=== PATIENT | male | born 1985 | race Caucasian/White ===

== ENCOUNTER 2023-11-30 17:26 | Emergency (ER) | payer MEDICARE, MEDICAID, SELFPAY ==
[2023-11-30 17:33] VITALS: BP 128/102; PULSE 105; TEMP 36.4; O2SAT 100; BMI 16.7
--- NOTE | 2023-11-30 17:59 | XR_ITS ---
The [address] [address] Patient Name: STEFANIE ELLIOTT MRN: [id number] date: 1985 Sex: M Assigned Patient Location: ED.MAIN Current Patient Location: Accession/Order Number: [id number] Exam Date: 11/30/2023 18:25 Report Date: 11/30/2023 20:07 At the request of: SIERRA CAMPBELL Procedure: XR chest 1V CXR HISTORY: Shortness of breath COMPARISON: None. TECHNIQUE: 1 view chest submitted for review. FINDINGS: The lungs are adequately expanded without evidence of acute infiltrate or effusion. The cardiac silhouette measures within normal. Pulmonary vascularity is unremarkable. Osseous structures do not demonstrate any acute abnormality. XR/XR chest 1V IMPRESSION: No plain film evidence for acute cardiopulmonary disease. Electronically authenticated by: LEIF AZUL Date: 11/30/2023 20:07
--- NOTE | 2023-11-30 18:36 | ED_ITS ---
HPI HPI - General Adult General Chief complaint: Nausea/Vomiting/Diarrhea Stated complaint: choking Time Seen by Provider: 11/30/23 17:43 Source: medical record Mode of arrival: ambulance Limitations: language barrier History of Present Illness HPI narrative: 38-year-old male presents emergency room by squad after an acute choking episode. He does live in assisted living facility. He is nonverbal. Patient had Heimlich performed on him prior to arrival. Patient did vomit after Heimlich maneuver. He presented here to the emergency room in no acute distress. He is able to take p.o. fluids. He has not hypoxic or showing signs of distress Related Data Allergies Allergy/AdvReac Type Severity Reaction Status Date / Time cat dander Allergy Severe Rash Verified 11/30/23 17:40 grass pollen Allergy Severe Rash Verified 11/30/23 17:40 horse dander Allergy Severe Rash Verified 11/30/23 17:40 Opioid HPI Opioid Management Most Recent Opioid Data: No Data to Display Review of Systems ROS Narrative All Systems are negative except as noted/marked.All systems reviewed and otherwise negative Exam Narrative Exam Narrative: Nurses note and vital signs reviewed and patient is not hypoxic. General: The patient appears well and in no apparent distress. Patient is resting comfortably on cart. Skin: Warm, dry, no pallor noted. There is no rash noted. Head: Normocephalic, atraumatic Eye: Normal conjunctiva, no drainage, EOMI. PERRL Ears, Nose, Mouth, and Throat: No stridor or respiratory distress , oral mucosa is moist. Nares patent. Mouth without vesicles. Ear canals patent. Tm's without Erythema Cardiovascular: Regular Rate and Rhythm Respiratory: Patient is in no distress, no accessory muscle use, lungs are clear to auscultation, no wheezing, rales or rhonchi Back: non-tender, no CVA tenderness bilaterally to percussion. GI: Normal bowel sounds, no tenderness to palpation, no masses appreciated. No rebound, guarding, or rigidity noted. Musculoskeletal: The patient has no evidence of calf tenderness, no pitting edema, symmetrical pulses noted bilaterally Neurological: Alert appropriate for self he is nonverbal he does sign Psychiatric: Cooperative Constitutional Vital Signs, click to edit/add: Last Vital Signs Temp 97.5 F L 11/30/23 17:33 Pulse 105 H 11/30/23 17:33 Resp 20 11/30/23 17:33 BP 128/102 H 11/30/23 17:33 Pulse Ox 100 11/30/23 17:33 O2 Del Method Room Air 11/30/23 17:33 Course Vital Signs Vital signs: Vital Signs Temperature 97.5 F L 11/30/23 17:33 Pulse Rate 105 H 11/30/23 17:33 Respiratory Rate 20 11/30/23 17:33 Blood Pressure 128/102 H 11/30/23 17:33 Pulse Oximetry 100 11/30/23 17:33 Oxygen Delivery Method Room Air 11/30/23 17:33 Temperature 97.5 F L 11/30/23 17:33 Pulse Rate 105 H 11/30/23 17:33 Respiratory Rate 20 11/30/23 17:33 Blood Pressure 128/102 H 11/30/23 17:33 Pulse Oximetry 100 11/30/23 17:33 Oxygen Delivery Method Room Air 11/30/23 17:33 Medical Decision Making Differential Diagnosis Differential Diagnosis: Foreign body, choking Medical Records Medical records reviewed: Yes I reviewed the patient's medical records Medical records narrative: Observed in the emergency room for over an hour. He is doing well he has tolerated 2 cans of soda here in the emergency room. He has had no vomiting. Mom is at bedside. Patient does live in assisted care but he is going to go home with her this evening. Reasons to return to the emergency room were discussed. Patient's been up and walking around the room without distress. He is not hypoxic and vital signs are stable Imaging Data Chest x-ray: Attestation: I have reviewed the pertinent imaging results. My impression: nad Discharge Plan Discharge Stand Alone Forms: Portal Instructions Chief Complaint: Nausea/Vomiting/Diarrhea Clinical Impression: Choking episode Patient Disposition: Home, Self-Care Time of Disposition Decision: 18:34 Condition: Good Print Language: Luxembourgish Instructions: Esophageal Foreign Body (ED) Referrals: Physician,Non-Staff, MD [Primary Care Provider] - 1 week
[2023-11-30 18:47] VITALS: BP 134/89; PULSE 88; O2SAT 100
--- NOTE | 2023-11-30 20:19 | ED.GENADUL1 ---
HPI HPI - General Adult General Chief complaint: Nausea/Vomiting/Diarrhea Stated complaint: choking Time Seen by Provider: 11/30/23 17:43 Source: medical record Mode of arrival: ambulance Limitations: language barrier History of Present Illness HPI narrative: 38-year-old male presented here to the emergency room by squad after a choking episode. Patient was eating chicken at a assisted living facility. Patient has history of MRDD and is nonverbal. Bystanders there did Heimlich maneuver on the patient. Patient immediately vomited coughed up the chicken. He did want 1 episode of vomiting after as well. Patient was brought here by squad for evaluation. Upon arrival to the emergency room he has had no signs of respiratory distress he is not coughing or vomiting. He was able to keep fluids down in squad. Patient is nonverbal he is home for his demeanor. Related Data Allergies Allergy/AdvReac Type Severity Reaction Status Date / Time cat dander Allergy Severe Rash Verified 11/30/23 17:40 grass pollen Allergy Severe Rash Verified 11/30/23 17:40 horse dander Allergy Severe Rash Verified 11/30/23 17:40 Opioid HPI Opioid Management Most Recent Opioid Data: No Data to Display Review of Systems ROS Narrative All Systems are negative except as noted/marked.All systems reviewed and otherwise negative Exam Narrative Exam Narrative: All Systems are negative except as noted/marked.All systems reviewed and otherwise negative Nurses note and vital signs reviewed and patient is not hypoxic. General: The patient appears well and in no apparent distress. Patient is resting comfortably on cart. Skin: Warm, dry, no pallor noted. There is no rash noted. Head: Normocephalic, atraumatic Eye: Normal conjunctiva, no drainage, EOMI. PERRL Ears, Nose, Mouth, and Throat: oral mucosa is moist. Nares patent. Mouth without vesicles. Ear canals patent. Tm's without Erythema Cardiovascular: Regular Rate and Rhythm Respiratory: Patient is in no distress, no accessory muscle use, lungs are clear to auscultation, no wheezing, rales or rhonchi Back: non-tender, no CVA tenderness bilaterally to percussion. GI: Normal bowel sounds, no tenderness to palpation, no masses appreciated. No rebound, guarding, or rigidity noted. Musculoskeletal: The patient has no evidence of calf tenderness, no pitting edema, symmetrical pulses noted bilaterally Neurological: A&O x4, normal speech Psychiatric: Cooperative Constitutional Vital Signs, click to edit/add: Last Vital Signs Temp 97.5 F L 11/30/23 17:33 Pulse 88 11/30/23 18:47 Resp 14 11/30/23 18:47 BP 134/89 11/30/23 18:47 Pulse Ox 100 11/30/23 18:47 O2 Del Method Room Air 11/30/23 18:47 Course Vital Signs Vital signs: Vital Signs Temperature 97.5 F L 11/30/23 17:33 Pulse Rate 105 H 11/30/23 17:33 Respiratory Rate 20 11/30/23 17:33 Blood Pressure 128/102 H 11/30/23 17:33 Pulse Oximetry 100 11/30/23 17:33 Oxygen Delivery Method Room Air 11/30/23 17:33 Temperature 97.5 F L 11/30/23 17:33 Pulse Rate 88 11/30/23 18:47 Respiratory Rate 14 11/30/23 18:47 Blood Pressure 134/89 11/30/23 18:47 Pulse Oximetry 100 11/30/23 18:47 Oxygen Delivery Method Room Air 11/30/23 18:47 Medical Decision Making MDM Narrative Medical decision making narrative: 38-year-old male presented here to the emergency room by emerson after a choking episode. Patient was eating chicken at a assisted living facility. Patient has history of MRDD and is nonverbal. Bystanders there did Heimlich maneuver on the patient. Patient immediately vomited coughed up the chicken. He did want 1 episode of vomiting after as well. Patient was brought here by emerson for evaluation. Upon arrival to the emergency room he has had no signs of respiratory distress he is not coughing or vomiting. He was able to keep fluids down in squad. Patient is nonverbal he is home for his demeanor. Brought to the emergency room patient was placed in room 4 comfortably. He he showed no signs of choking he is drinking well. He is nonverbal. He does sign. He states he has some tenderness to his throat. Patient was able to drink 2 cans of soda here and did keep them down. Chest x-ray did looked well as well. Mom was here evaluated patient and agrees with plan of care and going to take him home. Patient does live in assisted living but is going home with mom this evening. Patient is calm and cooperative looks well vital signs are stable. Differential Diagnosis Differential Diagnosis: , Aspiration, choking Medical Records Medical records reviewed: Yes I reviewed the patient's medical records Lab Data Lab results reviewed: Yes I reviewed the patient's lab results Imaging Data Chest x-ray: Radiologist's impression: ITS Impressions Chest X-Ray 11/30/23 17:59 IMPRESSION: No plain film evidence for acute cardiopulmonary disease. Electronically authenticated by: LEIF AZUL Date: 11/30/2023 20:07 Discharge Plan Discharge Stand Alone Forms: Portal Instructions Chief Complaint: Nausea/Vomiting/Diarrhea Clinical Impression: Choking episode Patient Disposition: Home, Self-Care Time of Disposition Decision: 18:34 Condition: Good Print Language: Danish Instructions: Esophageal Foreign Body (ED) Referrals: Physician,Non-Staff, MD [Primary Care Provider] - 1 week Discharge Date/Time: 11/30/23 18:50
== END 2023-11-30 18:50 | disposition home or self-care (01) ==
PROVIDERS: Emergency Provider Emergency Medicine
DX: T17.928A Food in respiratory tract, part unspecified causing other injury, initial encounter (principal); W44.F3XA Food entering into or through a natural orifice, initial encounter; F79 Unspecified intellectual disabilities
CPT/HCPCS: 71045; 99283

== ENCOUNTER 2024-02-10 16:16 | Outpatient (OUT) | payer MEDICARE, MEDICAID, SELFPAY ==
--- OUTSIDE RECORDS SUMMARY | 2024-02-10 16:27 | XMS_ITS | CCD ---
Author Organization [facility] VIDEOGRAPHER [facility] Care Team Providers Care Information Systems Security Developer Name Role Phone Unavailable Primary Care Provider Unavailabl e ANDREWS, DR IRASEMA Linder Admitting Unavailable ANDREWS, DR IRASEMA Linder Consulting Unavailable ANDREWS, DR IRASEMA Linder Attending Unavailable ANDREWS, DR IRASEMA Linder Attending Unavailable ANDREWS, DR IRASEMA Linder Admitting Unavailable ANDREWS, DR IRASEMA Linder Consulting Unavailable Unavailable Primary Care Provider Unavailabl e PROVIDER, UNKNOWN Attending Unavailable PROVIDER, UNKNOWN Admitting Unavailable ANDREWSIRASEMA Primary Care Physician [phone] IRASEMA ANDREWS Referring Unavailable ANDREWS, IRASEMA Admitting Unavailable ANDREWSIRASEMA Attending Unavailable ANDREWS, IRASEMA Admitting Unavailable ANDREWSIRASEMA Attending Unavailable ANDREWS, IRASEMA Admitting Unavailable ANDREWSIRASEMA Attending Unavailable Allergies Allergy Classification Reported Allergen(s) Allergy Type Date of Onset Reaction(s) Facility (4 sources) Ketamine; Translations: [KETAMINE] Drug Allergy 1 Rash [facility] Work Phone: (4 sources) [employer]; Translations: [ANIMALS] Propensity to adverse reactions to substance 8 [facility] (4 sources) Pollen; Translations: [POLLEN EXTRACT] Propensity to adverse reactions to drug 8 [facility] (4 sources) redtop grass pollen extract; Translations: [GRAMINEAE POLLENS] Drug Allergy 8 [facility] Medications Current Medications Medication Drug Class(es) Dates Sig (Normalized) Sig (Original) acetaminophen 325 mg oral capsule (3 sources) Start: 07-22-2020 take 2 tablets by mouth every four hours as needed Acetaminophen 325 MG CAPS Take 2 Tablets by mouth every 4 hours as needed. 0 07/22/2020 Active cloNIDine hydrochloride 0.2 mg oral tablet (3 sources) Central alpha-2 Adrenergic Agonist take 1 tablet by mouth three times daily cloNIDine (CATAPRES) 0.2 MG tablet Take 0.2 mg by mouth 3 times daily. 0 Active docosahexaenoic acid 120 mg / eicosapentaenoic acid 180 mg oral capsule (3 sources) Start: 07-22-2020 [place]-3 1000 MG CAPS Take by mouth 2 times daily. 0 07/22/2020 Active docusate sodium 100 mg oral capsule (3 sources) take 1 capsule by mouth twice daily docusate sodium (COLACE) 100 MG capsule Take 100 mg by mouth 2 times daily. 0 Active 12 hr guaiFENesin 600 mg extended release oral tablet (3 sources) Start: 07-22-2020 take 1 tablet by mouth twice daily as needed guaifenesin (Mucinex) 600 MG SR tablet Take 1 Tablet by mouth 2 times daily as needed. 60 Tablet 0 07/22/2020 Active 24 hr guanFACINE 4 mg extended release oral tablet (3 sources) Central alpha-2 Adrenergic Agonist take 1 tablet by mouth once daily in the morning GuanFACINE HCl (TENEX) 4 MG er tablet Take 1 Tablet by mouth every morning. 0 Active loratadine 10 mg oral tablet (3 sources) Start: 07-22-2020 take 1 tablet by mouth once daily as needed loratadine (CLARITIN) 10 MG tablet Take 1 Tablet by mouth daily as needed. 0 07/22/2020 Active metoprolol tartrate 25 mg oral tablet (3 sources) beta-Adrenergic Dang take 1 tablet by mouth three times daily metoprolol (LOPRESSOR) 25 MG tablet Take 1 Tablet by mouth 3 times daily. 0 Active minocycline 100 mg oral capsule (3 sources) Tetracycline-class Drug take 1 capsule by mouth twice daily minocycline (MINOCIN) 100 MG capsule Take 100 mg by mouth 2 times daily. 0 Active Multiple Vitamin (MULTI-VITAMINS) tablet (3 sources) Multiple Vitamin (MULTI-VITAMINS) tablet Take by mouth. 0 Active OLANZapine 10 mg oral tablet (6 sources) Atypical Antipsychotic take 1 tablet by mouth at bedtime OLANZapine (ZyPREXA) 20 MG tablet Take 20 mg by mouth at bedtime. 0 Active take 1 tablet by mouth at bedtim e OLANZapine (ZyPREXA) 10 MG tablet Take 10 mg by mouth at bedtime. 0 Active ondansetron 4 mg oral tablet (3 sources) Serotonin-3 Receptor Antagonist take 1 tablet by mouth every six hours as needed ondansetron (ZOFRAN) 4 MG tablet Take 4 mg by mouth every 6 hours as needed. 0 Active QUEtiapine 200 mg oral tablet (3 sources) Atypical Antipsychotic Start: take 1 tablet by mouth twice daily QUEtiapine (SEROQUEL) 200 MG tablet Take 1 Tablet by mouth 2 times daily. 60 Tablet 0 07/22/2020 Active simvastatin 20 mg oral tablet (3 sources) HMG-CoA Reductase Inhibitor take 1 tablet by mouth once daily in the evening simvastatin (ZOCOR) 20 MG tablet Take 20 mg by mouth every evening. 0 Active tretinoin 1 mg/ml topical cream (3 sources) Retinoid tretinoin (RETIN -A) 0.1 % cream Apply topically at bedtime. Apply daily at bedtime 0 Active 24 hr divalproex sodium 500 mg extended release oral tablet (3 sources) Mood Stabilizer, Anti-epileptic Agent take 1 tablet by mouth three times daily divalproex ER (DEPAKOTE ER) 500 MG ER tablet Take 1 Tablet by mouth 3 times daily. 0 Active witch lyn 200 mg/ml medicated pad (3 sources) Witch Lyn ([facility] [place]) 50 % PADS Apply externally as needed. 0 Active Problems Active Problems Problem Classification Problem Date Documented Da te Episodic/Chronic Anxiety disorders (3 sources) Obsessive-compulsiv e disorder 07-03-2013 Chronic Developmental disorders (6 sources) Intellectual disability; Translations: [Unspecified intellectual disabilities] Onset: 07-07-2020 07-07-2020 Chronic Disorders of lipid metabolism (1 source) Hyperlipidemia, unspecified; Translations: [HYPERLIPIDEMIA UNSPECIFIED] Onset: 07-28-2022 Chronic Disorders usually diagnosed in infancy, childhood, or adolescence (3 sources) Autistic disorder 07-03-2013 Chronic Mood disorders (1 source) Bipolar disorder, unspecified; Translations: [BIPOLAR DISORDER UNSPECIFIED] Onset: 04-07-2022 Chronic Other aftercare (4 sources) Other chcf (current) drug therapy; Translations: [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 PLEASE SEE DEDICATED SPEECH PATHOLOGY REPORT FOR FURTHER DETAILS. REASON FOR EXAM: Dysphagia. Choking episodes. TECHNIQUE: A modified barium swallow study was performed utilizing fluoroscopy in conjunction with speech pathology. Various consistencies of barium were administered. Air kerma mGy: 4.7; fluoroscopy time: 1.9 minutes; dose area product: 107.94 uGym2 All fluoroscopic video series were saved. FINDINGS: Mehul cracker, soft food, pureed food, and thin liquid consistency barium was administered. The patient tolerated all consistencies of barium without abnormality. No laryngeal penetration or tracheal aspiration occurred during this examination. Ordering Provider: IRASEMA ANDREWS FINAL REPORT Dictated: 12/17/2023 3:20 pm Augusto Car DO Signed (Electronic Signature): 12/17/2023 3:20 pm Signed by: Augusto Car DO Transcribed by: FADIA Technologist: AURORA Technical Comments Radiation Dose: Ka,r in mGy = 4.70 DAP = 107.94 Normal [facility] CBC w/Indiceson 07-17-2023 Erythrocyte distribution width (RBC) [Ratio] 13.1 % Normal 10.9-14.2 [facility] Comment on above: Performed By: #### 2 379966, 9480894, 6737228, 15891198, 4741776 #### [facility] [address] [place] [address] Hematocrit (Bld) [Volume fraction] 43.8 % Normal 37.7-49.0 [facility] Comment on above: Performed By: #### 2 727649, 6334522, 5839794, [id number], 9749570 #### [facility] [address] [place] [address] Hemoglobin (Bld) [Mass/Vol] 14.5 g/dL Normal 13.5-17.5 [facility] Comment on above: Performed By: #### 2 937567, 6522708, 7145992, 40704964, 1105338 #### [facility] [address] [place] [address] MCH (RBC) [Entitic mass] 30.5 pg Normal 27.0-34.0 [facility] Comment on above: Performed By: #### 2 913908, 2050464, 8598648, 56230201, 6011517 #### [facility] [address] [place], [place] [address] MCHC (RBC) [Mass/Vol] 33.2 g/dL Normal 31.4-36.0 [facility] Comment on above: Performed By: #### 2 246969, 2804137, 2561177, 43696502, 5746799 #### [facility] [address] [place], [place] [address] MCV (RBC) [Entitic vol] 92.0 fL Normal 80.0-100.0 [facility] Comment on above: Performed By: #### 2 809616, 2764948, 4233813, 13962934, 0721254 #### [facility] [address] [place] [address] Platelet mean volume (Bld) [Entitic vol] 10.6 fL Normal 6.4-10.8 [facility] Comment on above: Performed By: #### 2 489399, 3412827, 0674328, 90715179, 9792421 #### [facility] [address] [place] [address] Platelets (Bld) [#/Vol] 147.0 E9/L Low 150.0-500.0 [facility] Comment on above: Performed By: #### 2 602198, 8163718, 4565832, 34097165, 2094788 #### [facility] [address] [place] [address] RBC (Bld) [#/Vol] 4.8 E12/L Normal 4.3-5.9 [facility] Comment on above: Performed By: #### 2 368408, 8035712, 4439355, 89352946, 3204926 #### [facility] [address] [place] [address] RBC size Nom (Bld) NORMAL Invalid Interpretation Code [facility] Comment on above: Performed By: #### 2 030691, 1627285, 8668432, 17473611, 7966622 #### [facility] [address] [place] [address] WBC corrected for nucl RBC Auto (Bld) [#/Vol] 5.1 E9/L Normal 4.0-11.0 [facility] Comment on above: Performed By: #### 2 886934, 8881719, 0316585, 56466263, 9323112 #### [facility] [address] [place] [address] CHEMISTRYOrdered By: SYSTEM SYSTEM on 07-17-2023 Albumin [Mass/Vol] 4.3 g/dL Normal 3.3 - 5.0 gm/dL [facility] Albumin/Globulin [Mass ratio] 1.9 {ratio} Normal 1.1 - 2.2 [facility] ALP [Catalytic activity/Vol] 44 [iU]/d Normal 21 - 98 Int._Unit/L [facility] ALT No additional P-5'-P [Catalytic activity/Vol] 6 [iU]/d Normal 6 - 46 Int._Unit/L [facility] Anion gap [Moles/Vol] 10 mmol/L Normal 6 - 16 mEq/L R emisol Chem AST [Catalytic activity/Vol] 16 [iU]/d Normal 5 - 43 Int._Unit/L [facility] Bilirubin [Mass/Vol] 0.3 mg/dL Normal 0.0 - 1 .1 mg/dL [facility] Calcium [Mass/Vol] 9.5 mg/dL Normal 8.9 - 11. 1 mg/dL [facility] Chloride [Moles/Vol] 108 mmol/L Normal 101 - 1 11 mmol/L [facility] Cholesterol [Mass/Vol] 137 mg/dL Normal 120 - 200 mg/dL [facility] Cholesterol in HDL [Mass/Vol] 33 mg/dL Invalid Interpretation Code [facility] Comment on above: Result Comment: '>= 60 LOW RISK' '<= 40 HIGH RISK' Cholesterol in LDL [Mass/Vol] 87 mg/dL Normal <=129mg/dL [facility] Cholesterol in VLDL [Mass/Vol] 21 mg/dL Normal 7 - 40 mg/dL [facility] CO2 [Moles/Vol] 28 mmol/L Normal 21 - 31 mmol/L [facility] Creatinine [Mass/Vol] 1.0 mg/dL Normal 0.5 - 1.3 mg/dL [facility] eGFR 100 mL/min/1.73 m2 Normal >=59mL/mi n/1. 73 m2 [facility] Globulin (S) [Mass/Vol] 2.3 g/dL Normal 1.4 - 4.0 gm/dL [facility] Glucose [Mass/Vol] 81 mg/dL Normal 55 - 199 mg/dL [facility] Potassium [Moles/Vol] 4.4 mmol/L Normal 3.5 - 5.3 mmol/L [facility] Protein [Mass/Vol] 6.6 g/dL Normal 6.0 - 7.8 gm/dL [facility] Sodium [Moles/Vol] 142 mmol/L Normal 135 - 145 mmol/L [facility] Triglyceride [Mass/Vol] 106 mg/dL Normal <=149mg/dL [facility] Urea nitrogen [Mass/Vol] 16 mg/dL Normal 5 - 21 mg/dL [facility] Urea nitrogen/Creatinine [Mass ratio] 16 mg/mg Normal 10 - 20 [facility] Valpro Acid Lvl 115 microgram/mL Invalid Interpretation Code 50 - 99 mcg/mL [facility] Comment on above: Result Comment: Crit ical Result S_VPA:[id number] Called to and read back by: SAMIA Fontanez at: 07/17/2023 20:33:29 by:[id number] Critical Result Verified by Repeat Analysis Called Dr. Mitchell office, Samia is giving result to Dr. Corbin Andrews called back and took critical as well. CMPon 07-17-2023 Albumin [Mass/Vol] 4.3 g/dL Normal 3.3-5.0 [facility] Comment on above: Performed By: #### 2 345563, 8211749, 2582945, 75999884, 2229242 #### [facility] [address] [place] [address] Albumin/Globulin (S) [Mass conc ratio] 1.9 Normal 1.1-2.2 [facility] Comment on above: Performed By: #### 2 281542, 8662526, 7682006, 83805325, 4211520 #### [facility] [address] [place] [address] ALP [Catalytic activity/Vol] 44 Int._Unit/L Normal 21-98 [facility] Comment on above: Performed By: #### 2 243419, 9760970, 5841167, 06255367, 0950461 #### [facility] [address] [place] [address] ALT No additional P-5'-P [Catalytic activity/Vol] 6 Int._Unit/L Normal 6-46 [facility] Comment on above: Performed By: #### 2 184597, 9486478, 3506228, 43384456, 7984150 #### [facility] [address] [place] [address] Anion gap [Moles/Vol] 10 mmol/L Normal 6-16 [facility] Comment on above: Performed By: #### 2 978362, 5046642, 5293185, 89512401, 5301604 #### [facility] [address] [place] [address] AST [Catalytic activity/Vol] 16 Int._Unit/L Normal 5-43 [facility] Comment on above: Performed By: #### 2 327280, 4500743, 9741600, 41163837, 7546113 #### [facility] [address] [place] [address] Bilirubin [Mass/Vol] 0.3 mg/dL Normal 0.0-1.1 [facility] Comment on above: Performed By: #### 2 197016, 8881426, 4363792, 93965094, 6328023 #### [facility] [address] [place] [address] Calcium [Mass/Vol] 9.5 mg/dL Normal 8.9-11.1 [facility] Comment on above: Performed By: #### 2 415212, 8583848, 5828995, 20569806, 7848819 #### [facility] [address] [place] [address] Chloride [Moles/Vol] 108 mmol/L Normal 101-111 [facility] Comment on above: Performed By: #### 2 723138, 7405136, 1354399, 12485902, 1491915 #### [facility] [address] [place] [address] CO2 [Moles/Vol] 28 mmol/L Normal 21-31 [facility] Comment on above: Performed By: #### 2 648404, 1880315, 0074249, 76499124, 1244046 #### [facility] [address] [place] [address] Creatinine [Mass/Vol] 1.0 mg/dL Normal 0.5-1.3 [facility] Comment on above: Performed By: #### 2 139624, 3898471, 1383956, 86661776, 4651693 #### [facility] [address] [place] [address] Globulin (S) [Mass/Vol] 2.3 g/dL Normal 1.4-4.0 [facility] Comment on above: Performed By: #### 2 298190, 7474380, 2380605, 76177517, 2308750 #### [facility] [address] [place] [address] Glucose [Mass/Vol] 81 mg/dL Normal 55-199 [facility] Comment on above: Performed By: #### 2 263747, 8397211, 7506184, 00271979, 2802305 #### [facility] [address] [place] [address] Potassium [Moles/Vol] 4.4 mmol/L Normal 3.5-5.3 [facility] Comment on above: Performed By: #### 2 519703, 3341680, 0070562, 74550069, 9149664 #### [facility] [address] [place] [address] Protein [Mass/Vol] 6.6 g/dL Normal 6.0-7.8 [facility] Comment on above: Performed By: #### 2 771048, 0760385, 0943984, 24929155, 3624882 #### [facility] [address] [place] [address] Sodium [Moles/Vol] 142 mmol/L Normal 135-145 [facility] Comment on above: Performed By: #### 2 445159, 1178771, 7296286, 81335070, 7592294 #### [facility] [address] [place] [address] Urea nitrogen [Mass/Vol] 16 mg/dL Normal 5-21 [facility] Comment on above: Performed By: #### 2 679795, 7102355, 2254978, 41026830, 5545199 #### [facility] [address] [place] [address] Urea nitrogen/Creatinine [Mass ratio] 16 No Units Normal 10-20 [facility] Comment on above: Performed By: #### 2 712518, 5833957, 2564806, 67178101, 3854466 #### [facility] [address] [place] [address] HEMATOLOGYOrdered By: SYSTEM SYSTEM on 07-17-2023 Erythrocyte distribution width (RBC) [Ratio] 13.1 % Normal 10.9 - 14.2 % [facility] Hematocrit (Bld) [Volume fraction] 43.8 % Normal 37.7 - 49.0 % [facility] Hemoglobin (Bld) [Mass/Vol] 14.5 g/dL Normal 13.5 - 17.5 gm/dL [facility] MCH (RBC) [Entitic mass] 30.5 pg Normal 27.0 - 34.0 pg [facility] MCHC (RBC) [Mass/Vol] 33.2 g/dL Normal 31.4 - 36.0 gm/dL [facility] MCV (RBC) [Entitic vol] 92.0 fL Normal 80.0 - 100.0 fL [facility] Platelet mean volume (Bld) [Entitic vol] 10.6 fL Normal 6.4 - 10.8 fL [facility] Platelets (Bld) [#/Vol] 147.0 E9/L Low 150.0 - 500.0 E9/L [facility] RBC (Bld) [#/Vol] 4.8 E12/L Normal 4.3 - 5.9 E12/L [facility] RBC size Nom (Bld) NORMAL *NA* (07/17/23 7:35 AM) Invalid Interpretation Code [facility] WBC corrected for nucl RBC Auto (Bld) [#/Vol] 5.1 E9/L Normal 4.0 - 11.0 E9/L [facility] Lipid Panelon 07-17-2023 Cholesterol [Mass/Vol] 137 mg/dL Normal 120-200 [facility] Comment on above: Performed By: #### 2 029275, 6482699, 9634909, 37510748, 1524656 #### [facility] [address] [place] [address] Cholesterol in HDL [Mass/Vol] 33 mg/dL Invalid Interpretation Code [facility] Comment on above: Result Comment: '>= 60 LOW RISK' '<= 40 HIGH RISK' Performed By: #### 2 694910, 3477549, 9514304, 24195242, 9988094 #### [facility] [address] [place] [address] Cholesterol in LDL [Mass/Vol] 87 mg/dL Normal <=129 [facility] Comment on above: Performed By: #### 2 022753, 3353651, 5492409, 10000688, 5845776 #### [facility] [address] [place] [address] Cholesterol in VLDL [Mass/Vol] 21 mg/dL Normal 7-40 [facility] Comment on above: Performed By: #### 2 463476, 1857663, 4105444, 73759472, 5776952 #### [facility] [address] [place] [address] Triglyceride [Mass/Vol] 106 mg/dL Normal <=149 [facility] Comment on above: Performed By: #### 2 489571, 1315089, 8267571, 90729832, 0780055 #### [facility] [address] [place] [address] Physician Orderon 07-17-2023 Physician Order [id number]#1.00TIFF Normal [facility] Valproic Acidon 07-17-2023 Valpro Acid Lvl 115 microgram/mL Abnormal 50-99 [facility] Comment on above: Result Comment: Crit ical Result S_VPA:115 Called to and read back by: SAMIA Fontanez at: 07/17/2023 20:33:29 by:[id number] Critical Result Verified by Repeat Analysis Called Dr. Andrewss office, Samia is giving result to Dr. Corbin Andrews called back and took critical as well. Performed By: #### 2 924260, 0503127, 7674542, 42643588, 1829768 #### [facility] [address] [place] [address] eGFRon 07-17-2023 eGFR 100 mL/min/1.73 m2 Normal >=59 [facility] Comment on above: Order Comment: Order added by Discern Expert. Performed By: #### 2 033215, 3877407, 2615209, 66319915, 0528097 #### [facility] [address] [place] [address] CHEMISTRYOrdered By: SYSTEM SYSTEM on 03-06-2023 Valproate [Moles/Vol] 96 microgram/mL Normal 50 - 99 mcg/mL [facility] Physician Orderon 03-06-2023 Physician Order [id number]#1.00TIFF Normal [facility] Valproic Acidon 03-06-2023 Valproate [Moles/Vol] 96 microgram/mL Normal 50-99 [facility] Comment on above: Performed By: #### 2 895548 #### [facility] [address] [place] [address] Progress Noteson 01-15-2023 Manager Credit Collections Authentication Interface Message Text Normal [employer] [facility] Manager Credit Collections Authentication Interface Message Text ----- Sunday, January 15, 2023 at 2:05:02 PM ----- ----- Provider: [id number] - Ro Chinchilla Hygienist -- Clinic: [place] ----- OR EVALUATION Patient presents for evaluation to determine best course of treatment due to history of No significant medical history. N/C per pt. Patient is accompanied by caregiver for today's appointment. Patient partially cooperated for a partial intraoral exam. 3 BWX Clinical findings: Gingivitis and Periodontitis- stable It is best suited that this patient have full comprehensive examination, radiographs and treatment completed in the OR setting. Explained that the patient will be added to our OR waiting list, and the legal guardian will be contacted once a time slot becomes available. Legal Guardian: [facility] [phone] Nursing Dept [phone] NOTE: Dr. Del Valle did the exam Ro Farnsworth R[facility] Next Visit: OR ----- Signed on Monday, January 16, 2023 at 8:42:19 AM ----- ----- Provider: [id number] Soumya Maher DDS -- Clinic: [place] ----- Normal [employer] [facility] CBC AUTO DIFFon 07-24-2022 BASO # 0.0 103/ul Normal 0.0-0.1 [facility] Comment on above: Performed By: #### C BC #### [facility] [address] [address] [address] Theresa Azevedo Basophils/100 WBC (Bld) 0.7 % Normal 0.2-2.0 [facility] Comment on above: Performed By: #### C BC #### [facility] [id number] Theresa Azevedo EO # 0.2 103/ul Normal 0.0-0.7 [facility] Comment on above: Performed By: #### C BC #### [facility] [address] [address] [address] Theresa Azevedo Eosinophils/100 WBC (Bld) 3.2 % Normal 0.9-7.0 [facility] Comment on above: Performed By: #### C BC #### [facility] [address] [place] [address] Dr. Theresa Azevedo Erythrocyte distribution width (RBC) [Ratio] 12.1 % Normal 11.0-15.0 [facility] Comment on above: Performed By: #### C BC #### [facility] [address] [place] [address] Dr. Theresa Azevedo Hematocrit (Bld) [Volume fraction] 44.9 % Normal 42.0-54.0 [facility] Comment on above: Performed By: #### C BC #### [facility] [address] [place] [address] Dr. Theresa Azevedo Hemoglobin (Bld) [Mass/Vol] 14.8 g/dL Normal 14.0-18.0 [facility] Comment on above: Performed By: #### C BC #### [facility] [address] [place] [address] Dr. Theresa Azevedo IG # 0.06 10e3/ul Critically high 0.00-0.03 [facility] Comment on above: Performed By: #### C BC #### [facility] [address] [place] [address] Dr. Theresa Azevedo IG % 1.1 % Critically high 0.0-0.5 [facility] Comment on above: Performed By: #### C BC #### [facility] [address] [place] [address] Dr. Theresa Azevedo LYMPH # 1.9 103/ul Normal 1.2-3.8 [facility] Comment on above: Performed By: #### C BC #### [facility] [address] [place] [address] Dr. Theresa Azevedo Lymphocytes/100 WBC (Bld) 33.9 % Normal 20.5-60.0 [facility] Comment on above: Performed By: #### C BC #### [facility] [address] [place] [address] Dr. Theresa Azevedo MANUAL DIFF REQ NO Normal [facility] Comment on above: Performed By: #### C BC #### [facility] [address] [place] [address] Dr. Theresa Azevedo MCH (RBC) [Entitic mass] 30.1 pg Normal 25.9-34.0 [facility] Comment on above: Performed By: #### C BC #### [facility] [address] [place] [address] Dr. Theresa Azevedo MCHC (RBC) [Mass/Vol] 33.0 g/dL Normal 29.9-35.2 [facility] Comment on above: Performed By: #### C BC #### [facility] [address] [place] [address] Dr. Theresa Azevedo MCV (RBC) [Entitic vol] 91.3 fL Normal 80.0-94.0 [facility] Comment on above: Performed By: #### C BC #### [facility] [address] [place] [address] Dr. Theresa Azevedo MONO # 0.4 103/ul Normal 0.3-0.8 [facility] Comment on above: Performed By: #### C BC #### [facility] [address] [place] [address] Dr. Theresa Azevedo Monocytes/100 WBC (Bld) 6.9 % Normal 1.7-12.0 [facility] Comment on above: Performed By: #### C BC #### [facility] [address] [place] [address] Dr. Theresa Azevedo NEUT # 3.1 103/ul Normal 1.4-6.5 [facility] Comment on above: Performed By: #### C BC #### [facility] [address] [place] [address] Dr. Theresa Azevedo Neutrophils/100 WBC (Bld) 54.2 % Normal 43.0-75.0 [facility] Comment on above: Performed By: #### C BC #### [facility] [address] [place], [place] [id number] Dr. Theresa Azevedo Platelet mean volume (Bld) [Entitic vol] 10.5 fL Normal 9.5-13.5 [facility] Comment on above: Performed By: #### C BC #### [facility] [address] [place] [address] Dr. Theresa Azevedo PLT 221 103/ul Normal 150-450 [facility] Comment on above: Performed By: #### C BC #### [facility] [address] [place] [address] Dr. Theresa Azevedo RBC 4.92 106/ul Normal 4.70-6.10 [facility] Comment on above: Performed By: #### C BC #### [facility] [address] [place] [address] Dr. Theresa Azevedo WBC 5.7 103/ul Normal 4.0-11.0 [facility] Comment on above: Performed By: #### C BC #### [facility] [address] [place] [address] Dr. Theresa Azevedo LIPID PROFILEon 07-24-2022 CHOL-HDL RATIO NORM SEE BELOW Normal [facility] Comment on above: Result Comment: 3.3 - 4.4 LOW RISK 4.4 - 7.1 AVERAGE RISK 7.1 - 11.0 MODERATE RISK >11.0 HIGH RISK Performed By: #### L IPID, CMP #### [facility] [address] [place] [address] Dr. Theresa Azevedo Cholesterol [Mass/Vol] 169 mg/dL Normal <=200 [facility] Comment on above: Performed By: #### L IPID, CMP #### [facility] [address] [place] [address] Dr. Theresa Azevedo Cholesterol in HDL [Mass/Vol] 28 mg/dL Critically low 40-60 [facility] Comment on above: Performed By: #### L IPID, CMP #### [facility] [address] [place] [address] Dr. Theresa Azevedo Cholesterol in LDL [Mass/Vol] 118.8 mg/dL Normal [facility] Comment on above: Performed By: #### L IPID, CMP #### [facility] [address] [address] [address] Theresa Azevedo Cholesterol.total/Cho lesterol in HDL [Mass ratio] 6.0 {ratio} Normal [facility] Comment on above: Performed By: #### L IPID, CMP #### [facility] [address] [address] [address] Theresa Azevedo HDL NORMAL > or = 60 mg/dl - LOW CARDIOVASCULAR RISK <40 mg/dl - HIGH CARDIOVASCULAR RISK Normal [facility] Comment on above: Performed By: #### L IPID, CMP #### [facility] [address] [address] [address] Theresa Azevedo LDL CALC NORMAL SEE BELOW Normal [facility] Comment on above: Result Comment: <100 mg/dl OPTIMAL 100 - 129 mg/dl NEAR OR ABOVE OPTIMAL 130 - 159 mg/dl BORDERLINE HIGH 160 - 189 mg/dl HIGH >190 mg/dl VERY HIGH Performed By: #### L IPID, CMP #### [facility] [address] [place] [address] Dr. Theresa Azevedo Triglyceride [Mass/Vol] 111 mg/dL Normal <=150 [facility] Comment on above: Performed By: #### L IPID, CMP #### [facility] [address] [place] [address] Dr. Theresa Azevedo VLDL CALC 22.2 mg/dL Normal [facility] Comment on above: Performed By: #### L IPID, CMP #### [facility] [address] [address] [address] Theresa Azevedo PROF 14(COMP METB)on 023 Albumin [Mass/Vol] 3.5 g/dL Normal 3.4-5.0 [facility] Comment on above: Performed By: #### L IPID, CMP #### [facility] [address] [place] [address] Dr. Theresa Azevedo Albumin/Globulin [Mass ratio] 0.9 {ratio} Normal [facility] Comment on above: Performed By: #### L IPID, CMP #### [facility] [address] [address] [address] Theresa Azevedo ALP [Catalytic activity/Vol] 55 U/L Normal 46-116 [facility] Comment on above: Performed By: #### L IPID, CMP #### [facility] [address] [address] [address] Theresa Azevedo ALT [Catalytic activity/Vol] 16 U/L Normal 16-63 [facility] Comment on above: Performed By: #### L IPID, CMP #### [facility] [address] [address] [address] Theresa Azevedo Anion gap [Moles/Vol] 10.9 mmol/L Normal [facility] Comment on above: Performed By: #### L IPID, CMP #### [facility] [address] [place] [address] Dr. Theresa Azevedo AST [Catalytic activity/Vol] 12 U/L Critically low 15-37 [facility] Comment on above: Performed By: #### L IPID, CMP #### [facility] [address] [place] [address] Dr. Theresa Azevedo Bilirubin [Mass/Vol] 0.4 mg/dL Normal 0.2-1.0 [facility] Comment on above: Performed By: #### L IPID, CMP #### [facility] [address] [place] [address] Dr. Theresa Azevedo Calcium [Mass/Vol] 9.5 mg/dL Normal 8.5-10.1 [facility] Comment on above: Performed By: #### L IPID, CMP #### [facility] [address] [place] [address] Dr. Theresa Azevedo Chloride [Moles/Vol] 106 mmol/L Normal 98-107 [facility] Comment on above: Performed By: #### L IPID, CMP #### [facility] [address] [place] [address] Dr. Theresa Azevedo CO2 [Moles/Vol] 31.1 mmol/L Normal 21.0-32.0 [facility] Comment on above: Performed By: #### L IPID, CMP #### [facility] [address] [address] [address] Theresa Azevedo Creatinine [Mass/Vol] 0.79 mg/dL Normal 0.70-1.30 [facility] Comment on above: Performed By: #### L IPID, CMP #### [facility] [address] [address] [address] Theresa Azevedo EGFR-AF PARAGUAYAN >60 Normal >=60 [facility] Comment on above: Performed By: #### L IPID, CMP #### [facility] [address] [address] [address] Theresa Azevedo EGFR-NON AF PARAGUAYAN >60 Normal >=60 [facility] Comment on above: Performed By: #### L IPID, CMP #### [facility] [address] [address] [address] Theresa Azevedo Globulin (S) [Mass/Vol] 4.1 g/dL Normal [facility] Comment on above: Performed By: #### L IPID, CMP #### [facility] [address] [address] [address] Theresa Azevedo Glucose [Mass/Vol] 90 mg/dL Normal 74-106 [facility] Comment on above: Performed By: #### L IPID, CMP #### [facility] [address] [address] [address] Theresa Azevedo Potassium [Moles/Vol] 4.0 mmol/L Normal 3.5-5.1 [facility] Comment on above: Performed By: #### L IPID, CMP #### [facility] [address] [address] [address] Theresa Azevedo Protein [Mass/Vol] 7.6 g/dL Normal 6.4-8.2 [facility] Comment on above: Performed By: #### L IPID, CMP #### [facility] [address] [address] [address] Theresa Azevedo Sodium [Moles/Vol] 144 mmol/L Normal 136-145 [facility] Comment on above: Performed By: #### L IPID, CMP #### [facility] [address] [address] [address] Theresa Azevedo Urea nitrogen [Mass/Vol] 13.0 mg/dL Normal 7.0-18.0 [facility] Comment on above: Performed By: #### L IPID, CMP #### [facility] [address] [address] [address] Theresa Azevedo Urea nitrogen/Creatinine [Mass ratio] 16.5 mg/mg Normal [facility] Comment on above: Performed By: #### L IPID, CMP #### [facility] [address] [address] [address] Theresa Azevedo DEPAKENE/ VALPROIC ACIDon DEPAKENE 97.6 ug/ml Normal 50.0-100.0 [facility] Comment on above: Performed By: #### V ALP #### [facility] [address] [address] [address] Theresa Azevedo Encounters Encounter Date Encounter Type Care Provider Facility Start: 12-17-2023 End: 12-17-2023 ambulatory IRASEMA ANDREWS [place] [place]: 12-17-2023 End: 12-17-2023 Patient encounter procedure IRASEMA ANDREWS [facility] Start: 07-17-2023 End: 07-17-2023 Lab Drop off IRASEMA ANDREWS [facility] Start: 07-17-2023 End: 07-17-2023 ambulatory IRASEMA ANDREWS [place] [place]: 03-06-2023 End: 03-06-2023 ambulatory IRASEMA ANDREWS [place] [place]: 03-06-2023 End: 03-06-2023 Lab Drop off IRASEMA ANDREWS [facility] Start: 01-15-2023 End: 01-17-2023 ambulatory UNKNOWN PROVIDER Facility:[facility] Start: 01-15-2023 End: 01-17-2023 Patient encounter procedure Ro Chinchilla [facility] Work Phone: [facility] Start: 07-24-2022 End: 07-25-[address] IRASEMA ANDREWS Facility:[facility] Start: 04-29-2022 Letter encounter [facility] Start: 04-03-2022 End: 04-04-[address] IRASEMA ANDREWS Facility:[facility] Start: 08-29-2021 End: 08-30-2021 Patient encounter procedure Lima Bazan [facility] Work Phone: [facility] Plan of Treatment Date Care Activity Detail Author Start: 10-15-2037 Shingles (RZV) Vacci ne (1 of 2) Shingles (RZV) Vaccine (1 of 2) [facility] Start: 09-22-[address] [facility] Start: 12-21-2022 Influenza vaccination Influenza Vacc ine (#1) [facility] Start: 10-15-2022 Lipid panel Cholesterol [facility] Start: 01-20-2022 Influenza vaccination Influenza Vacc ine (#1) [facility] Start: 10-15-2014 HPV Vaccine (optiona l start 27-45 years) HPV Vaccine (optional start -45 years) [facility] Start: 09-20-2008 Annual wellness visit Annual [facility] Visit (G0438) [facility] Start: 10-15-2005 Hepatitis C screening Hepatitis C An tibody [facility] Start: 10-15-2002 HIV screening HIV Test [facility] Start: 1987 COVID-19 Vaccine ( formulation) COVID-19 Vaccine ( formulation) [facility] Immunizations Immunization Date Immunization Notes Care Provider Fa cili 02-15-2021 influenza, injectabl e, quadrivalent, preservative free Lima Bazan [facility] Work Phone: [facility] 02-15-2021 influenza virus vacc ine, unspecified formulation [facility] 01-27-2020 influenza, injectabl e, quadrivalent, preservative free Lima Bazan [facility] Work Phone: [facility] 09-23-2019 tetanus toxoid, redu regina diphtheria toxoid, and acellular pertussis vaccine, adsorbed Lima Bazan [facility] Work Phone: [facility] 01-29-2018 influenza, injectabl e, quadrivalent, preservative free Lima Bazan [facility] Work Phone: [facility] 02-13-2017 influenza, injectabl e, quadrivalent, contains preservative Lima Bazan [facility] Work Phone: [facility] 02-10-2015 influenza, injectabl e, quadrivalent, preservative free Lima Bazan [facility] Work Phone: [facility] 03-09-2009 novel influenza-H1N1 -09, preservative-free, injectable Lima Bazan [facility] Work Phone: [facility] 02-12-2008 influenza virus vacc ine, whole virus Lima Beni [facility] Work Phone: [facility] 02-19-2006 influenza, seasonal, injectable Lima Bazan [facility] Work Phone: [facility] 10-30-2001 measles, mumps and r ubella virus vaccine Limaelza Bazan [facility] Work Phone: [facility] 05-31-1999 diphtheria, tetanus toxoids and acellular pertussis vaccine, unspecified formulation Lima Bazan [facility] Work Phone: [facility] Payers Date Payer Category Payer Medicaid [id number] 2007 Medicare MEDICARE MEDICAR E PART A & B [id number] 2007-Present [address] [place] [address] Medicare [id number] 1987 Unknown [id number] 1987 Unknown [id number] 1987 Unknown [id number] 1987 Unknown [id number] 1987 Unknown [id number] 1957 Medicaid [id number] 1957 Medicare [id number] Unknown [id number] Social History Date Type Detail Facility Start: 07-22-2020 Tobacco smoking status WAIS Never smoked tobacco [facility] Work Phone: Start: 07-22-2020 Tobacco use and exposure Smokeless tobacco non-user [facility] Start: 1985 Sex Assigned At Not on file [facility] Gender identity Not on file [facility] Tobacco smoking status No Smoking Status Entered [facility] History of Present illness Narrative 01-15-2023 Ro Chinchilla [facility] - 01/15/2023 1:12 PM EDTRaRo armando [facility] - 01/15/2023 12:00 AM EDT Note Date & Type Note Facility 01-15-2023 History of Presen t illness Narrative ----- Sunday, January 15, 2023 at 2:05:02 PM ----- ----- Provider: [id number] - Pastor Gonzalezeni -- Clinic: [place] ----- OR EVALUATION Patient presents for evaluation to determine best course of treatment due to history of No significant medical history. N/C per pt. Patient is accompanied by caregiver for today's appointment. Patient partially cooperated for a partial intraoral exam. 3 BWX Clinical findings: Gingivitis and Periodontitis- stable It is best suited that this patient have full comprehensive examination, radiographs and treatment completed in the OR setting. Explained that the patient will be added to our OR waiting list, and the legal guardian will be contacted once a time slot becomes available. Legal Guardian: [facility] [phone] Nursing Dept [phone] NOTE: Dr. Del Valle did the exam Ro Farnsworth [facility] Next Visit: OR ----- Signed on Monday, January 16, 2023 at 8:42:19 AM ----- ----- Provider: [id number] Soumya Maher DDS -- Clinic: [place] ----- documented in this encounter [facility] History of Present illness Narrative 08-29-2021 Lima Bazan [facility] - 08/29/2021 11:22 AM EDT Note Date & Type Note Facility 08-29-2021 History of Presen t illness Narrative ----- Sunday, August 29, 2021 at 3:36:11 PM ----- ----- Provider: [id number] Soumya Bazan Hygieni -- Clinic: [place] ----- FOR[facility]LY [facility], [facility], Pt is ready for tx Pt presented for Periodic Examination, Pain Scale: 0. Pt chief complaint: FOLLOW UP Radiographs taken today were: none due to pt cooperation Examination reveals: Periodontal disease, Soft tissue is within normal limits, TMJ is within normal limits, Verified charting, Updates made. Went over current needs and past needs that have not been fulfilled. Oral hygiene instructions given to the patient Pt is scheduled for Prophylaxis, Examination of dentition and gingiva was done, and revealed that the pt has: Plaque _mod__ Calculus _mod ([place] ant)__ Staining _mod (intrinsic)__ *Hand scaling was done using curettes. Teeth were polished with pumice. Pt has signs of gum disease will need assessment of probing depths for S&RP. Pt tolerated procedure well. OHI and education were discussed with the pt. Place pt on 6 month recall. Examination completed by Dr. Young. Note: Pt was seen in the OR July 2020. Tried to scale with instruments and pt kept pulling away and was unable to scale. Only removed some from 24-M. pt allowed toothbrush prophy, floss and to be wiped with a gauze. Allowed for clinical exam and there is no evidence of decay. Advised to follow-up in 1 year. Lima [facility] [place]: RECALL/ 1 year. ----- Signed on Sunday, August 29, 2021 at 3:45:45 PM ----- ----- Provider: Emre Maher DDS -- Clinic: [place] ----- documented in this encounter [facility] Evaluation + Plan note Note Date & Type Note Facility Evaluation + Plan note No data available for this section [facility] Hospital Discharge instructions Note Date & Type Note Facility Hospital Discharge instructions No data available for this section [facility] Progress note Note Date & Type Note Facility Progress note No data available for this section [facility] Summary Purpose Family History No Family History Records FoundNo Family History Records Found No data available for this section No data available for this section No data available for this section No Family History Records Found Advance Directives No Advanced Directives Records FoundNo Advanced Directives Records FoundNo Advanced Directives Records Found Additional Source Comments (unrecognized sect ion and content) No Status Records FoundNo Status Records FoundNo Status Records Found INFORMATION SOURCE (unrecogn ized section and content) DATE CREATED AUTHOR 07/29/2022 [facility] DATE CREATED AUTHOR AUTHOR'S ORGANIZ ATION [facility]2023 [facility] DATE CREATED AUTHOR AUTHOR'S ORGANIZ ATION 12/25/2023 [facility] Patient Care team informatio n (unrecognized section and content) Personnel Name: IRASEMA ANDREWS DO Address: Address: [address] [place] [address] Personnel Name: IRASEMA ANDREWS DO Address: Address: [address] [place] [address] Personnel Name: IRASEMA ANDREWS DO Address: Address: [address] [place] [address] FOR RECORDS PERTAINING TO PATIENTS WHO ARE OR HAVE BEEN ENROLLED IN A CHEMICAL DEPENDENCY/SUBSTANCEABUSE PROGRAM, SOME INFORMATION MAY BE OMITTED. This clinical summary was aggregated from multiple sources. Caution should be exercised in using it in the provision of clinical care. This summary normalizes information from multiple sources, and as a consequence, information in this document may materially change the coding, format and clinical context of patient data. In addition, data may be omitted in some cases. CLINICAL DECISIONS SHOULD BE BASED ON THE PRIMARY CLINICAL RECORDS. [facility] [employer] [facility]. provides no warranty or guarantee of the accuracy or completeness of information in this document.
[2024-02-10 16:53] LABS: Valproic Acid 49.6 ug/mL (50.0-100.0)
== END 2024-02-10 16:17 | disposition home or self-care (01) ==
PROVIDERS: Visit Provider Family Medicine
DX: Z79.899 Other long term (current) drug therapy (principal)
CPT/HCPCS: 36415; 80164

== ENCOUNTER 2024-06-30 06:54 | Outpatient (OUT) | payer MEDICARE, MEDICAID, SELFPAY ==
--- OUTSIDE RECORDS SUMMARY | 2024-06-30 06:58 | XMS_ITS | CCD ---
Author Organization [facility] Care Team Providers Care American History Teacher Name Role Phone Unavailable Primary Care Provider Unavailabl e ANDREWS, DR IRASEMA Linder Admitting Unavailable ANDREWS, DR IRASEMA Linder Consulting Unavailable ANDREWS, DR IRASEMA Linder Attending Unavailable ANDREWS, DR IRASEMA Linder Attending Unavailable ANDREWS, DR IRASEMA Linder Admitting Unavailable ANDREWS, DR IRASEMA Linder Consulting Unavailable Unavailable Primary Care Provider Unavailabl e PROVIDER, UNKNOWN Attending Unavailable PROVIDER, UNKNOWN Admitting Unavailable ANDREWSIRASEMA Primary Care Physician [phone] IRASEMA ANDREWS Referring Unavailable ANDREWS, IRASEMA Admitting Unavailable ANDREWS, IRASEMA Attending Unavailable ANDREWS, IRASEMA Admitting Unavailable ANDREWS, IRASEMA Attending Unavailable ANDREWS, IRASEMA Admitting Unavailable ANDREWS, IRASEMA Attending Unavailable Allergies Allergy Classification Reported Allergen(s) Allergy Type Date of Onset Reaction(s) Facility (5 sources) Ketamine; Translations: [KETAMINE] Drug Allergy 1 Rash [facility] Work Phone: (5 sources) [employer]; Translations: [ANIMALS] Propensity to adverse reactions to substance 8 [facility] (5 sources) Pollen; Translations: [POLLEN EXTRACT] Propensity to adverse reactions to drug 8 [facility] (5 sources) redtop grass pollen extract; Translations: [GRAMINEAE POLLENS] Drug Allergy 8 [facility] Medications Current Medications Medication Drug Class(es) Dates Sig (Normalized) Sig (Original) acetaminophen 325 mg oral capsule (4 sources) Start: 07-22-2020 take 2 tablets by mouth every four hours as needed Acetaminophen 325 MG CAPS Take 2 Tablets by mouth every 4 hours as needed. 07/22/2020 Active cloNIDine hydrochloride 0.2 mg oral tablet (4 sources) Central alpha-2 Adrenergic Agonist take 1 tablet by mouth three times daily cloNIDine (CATAPRES) 0.2 MG tablet Take 0.2 mg by mouth 3 times daily. Active docosahexaenoic acid 120 mg / eicosapentaenoic acid 180 mg oral capsule (4 sources) Start: 07-22-2020 Reynolds-3 1000 MG CAPS Take by mouth 2 times daily. 07/22/2020 Active docusate sodium 100 mg oral capsule (4 sources) take 1 capsule by mouth twice daily docusate sodium (COLACE) 100 MG capsule Take 100 mg by mouth 2 times daily. Active 12 hr guaiFENesin 600 mg extended release oral tablet (4 sources) Start: 07-22-2020 take 1 tablet by mouth twice daily as needed guaifenesin (Mucinex) 600 MG SR tablet Take 1 Tablet by mouth 2 times daily as needed. 60 Tablet 07/22/2020 Active 24 hr guanFACINE 4 mg extended release oral tablet (4 sources) Central alpha-2 Adrenergic Agonist take 1 tablet by mouth once daily in the morning GuanFACINE HCl (TENEX) 4 MG er tablet Take 1 Tablet by mouth every morning. Active loratadine 10 mg oral tablet (4 sources) Start: 07-22-2020 take 1 tablet by mouth once daily as needed loratadine (CLARITIN) 10 MG tablet Take 1 Tablet by mouth daily as needed. 07/22/2020 Active metoprolol tartrate 25 mg oral tablet (4 sources) beta-Adrenergic Dang take 1 tablet by mouth three times daily metoprolol (LOPRESSOR) 25 MG tablet Take 1 Tablet by mouth 3 times daily. Active minocycline 100 mg oral capsule (4 sources) Tetracycline-cla ss Drug take 1 capsule by mouth twice daily minocycline (MINOCIN) 100 MG capsule Take 100 mg by mouth 2 times daily. Active Multiple Vitamin (MULTI-VITAMINS) tablet (4 sources) Multiple Vitamin (MULTI-VITAMINS) tablet Take by mouth. Active Multiple Vitamin (MULTI-VITAMINS) tablet Take by mouth. 0 Active OLANZapine 10 mg oral tablet (8 sources) Atypical Antipsychotic take 1 tablet by mouth at bedtime OLANZapine (ZyPREXA) 20 MG tablet Take 20 mg by mouth at bedtime. Active take 1 tablet by mouth at bedtim e OLANZapine (ZyPREXA) 10 MG tablet Take 10 mg by mouth at bedtime. Active ondansetron 4 mg oral tablet (4 sources) Serotonin-3 Receptor Antagonist take 1 tablet by mouth every six hours as needed ondansetron (ZOFRAN) 4 MG tablet Take 4 mg by mouth every 6 hours as needed. Active QUEtiapine 200 mg oral tablet (4 sources) Atypical Antipsychotic Start: 1 take 1 tablet by mouth twice daily QUEtiapine (SEROQUEL) 200 MG tablet Take 1 Tablet by mouth 2 times daily. 60 Tablet 07/22/2020 Active simvastatin 20 mg oral tablet (4 sources) HMG-CoA Reductase Inhibitor take 1 tablet by mouth once daily in the evening simvastatin (ZOCOR) 20 MG tablet Take 20 mg by mouth every evening. Active tretinoin 1 mg/ml topical cream (4 sources) Retinoid tretinoin (RETIN -A) 0.1 % cream Apply topically at bedtime. Apply daily at bedtime Active 24 hr divalproex sodium 500 mg extended release oral tablet (4 sources) Mood Stabilizer, Anti-epileptic Agent take 1 tablet by mouth three times daily divalproex ER (DEPAKOTE ER) 500 MG ER tablet Take 1 Tablet by mouth 3 times daily. Active witch lyn 200 mg/ml medicated pad (4 sources) Witch Lyn ([facility] [place]) 50 % PADS Apply externally as needed. Active Problems Active Problems Problem Classification Problem Date Documented Da te Episodic/Chronic Anxiety disorders (3 sources) Obsessive-compulsiv e disorder 07-03-2013 Chronic Developmental disorders (7 sources) Intellectual disability; Translations: [Unspecified intellectual disabilities] Onset: 07-07-2020 07-07-2020 Chronic Disorders of lipid metabolism (1 source) Hyperlipidemia, unspecified; Translations: [HYPERLIPIDEMIA UNSPECIFIED] Onset: 07-28-2022 Chronic Disorders usually diagnosed in infancy, childhood, or adolescence (3 sources) Autistic disorder 07-03-2013 Chronic Mood disorders (1 source) Bipolar disorder, unspecified; Translations: [BIPOLAR DISORDER UNSPECIFIED] Onset: 04-07-2022 Chronic Other aftercare (4 sources) Other residential (current) drug therapy; Translations: [OTH 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 CURRENT DRUG THERAPY] Onset: 07-24-2022 Episodic Past or Other Problems Problem Classification Problem Date Documented Da te Episodic/Chronic Disorders of teeth and jaw (4 sources) Dental caries; Translations: [Dental caries, unspecified] [...] mGy = 4.70 DAP = 107.94 Normal [facility] CBC w/Indiceson 07-17-2023 Erythrocyte distribution width (RBC) [Ratio] 13.1 % Normal 10.9-14.2 [facility] Comment on above: Performed By: #### 2 278534, 6109651, 2733395, [id number], 9596605 #### [facility] [address] [place] [address] Hematocrit (Bld) [Volume fraction] 43.8 % Normal 37.7-49.0 [facility] Comment on above: Performed By: #### 2 616128, 5137784, 1271453, 46117911, 4692660 #### [facility] [address] [place] [address] Hemoglobin (Bld) [Mass/Vol] 14.5 g/dL Normal 13.5-17.5 [facility] Comment on above: Performed By: #### 2 863408, 9778089, 4775121, 46021017, 2171716 #### [facility] [address] [place] [address] MCH (RBC) [Entitic mass] 30.5 pg Normal 27.0-34.0 [facility] Comment on above: Performed By: #### 2 099795, 0621885, 3627945, 19400791, 1039993 #### [facility] [address] [place] [address] MCHC (RBC) [Mass/Vol] 33.2 g/dL Normal 31.4-36.0 [facility] Comment on above: Performed By: #### 2 776636, 5603953, 4871015, 85567503, 0486606 #### [facility] [address] [place] [address] MCV (RBC) [Entitic vol] 92.0 fL Normal 80.0-100.0 [facility] Comment on above: Performed By: #### 2 364883, 9814961, 4455553, 49593527, 0631456 #### [facility] [address] [place], [place] [id number] Platelet mean volume (Bld) [Entitic vol] 10.6 fL Normal 6.4-10.8 [facility] Comment on above: Performed By: #### 2 100559, 3081550, 5604734, 30921588, 3031868 #### [facility] [address] [place], [place] [id number] Platelets (Bld) [#/Vol] 147.0 E9/L Low 150.0-500.0 [facility] Comment on above: Performed By: #### 2 189127, 1983513, 8157867, 17890499, 9811308 #### [facility] [address] [place] [address] RBC (Bld) [#/Vol] 4.8 E12/L Normal 4.3-5.9 [facility] Comment on above: Performed By: #### 2 299474, 7715458, 2361837, 48642509, 0381773 #### [facility] [address] [place] [address] RBC size Nom (Bld) NORMAL Invalid Interpretation Code [facility] Comment on above: Performed By: #### 2 189584, 1527594, 5754479, 43354904, 0940445 #### [facility] [address] [place] [address] WBC corrected for nucl RBC Auto (Bld) [#/Vol] 5.1 E9/L Normal 4.0-11.0 [facility] Comment on above: Performed By: #### 2 850097, 7917878, 9157637, 60430397, 3173742 #### [facility] [address] [place] [address] CHEMISTRYOrdered By: SYSTEM SYSTEM on 07-17-2023 Albumin [...] back by: SAMIA Fontanez at: 07/17/2023 20:33:29 by:[email or web address] Critical Result Verified by Repeat Analysis Called Dr. Mitchell office, Samia is giving result to Dr. Corbin Andrews called back and took critical as well. CMPon 07-17-2023 Albumin [Mass/Vol] 4.3 g/dL Normal 3.3-5.0 [facility] Comment on above: Performed By: #### 2 302658, 3645377, 7837998, 71241191, 3277024 #### [facility] [address] [place] [address] Albumin/Globulin (S) [Mass conc ratio] 1.9 Normal 1.1-2.2 [facility] Comment on above: Performed By: #### 2 401012, 8091379, 4168012, 95201698, 6166109 #### [facility] [address] [place] [address] ALP [Catalytic activity/Vol] 44 Int._Unit/L Normal 21-98 [facility] Comment on above: Performed By: #### 2 113633, 1713063, 0944244, 60321244, 2200361 #### [facility] [address] [place] [address] ALT No additional P-5'-P [Catalytic activity/Vol] 6 Int._Unit/L Normal 6-46 [facility] Comment on above: Performed By: #### 2 194399, 3572038, 9468957, 95144713, 1586778 #### [facility] [address] [place] [address] Anion gap [Moles/Vol] 10 mmol/L Normal 6-16 [facility] Comment on above: Performed By: #### 2 661435, 6776329, 2926785, 66613185, 3914641 #### [facility] [address] [place] [address] AST [Catalytic activity/Vol] 16 Int._Unit/L Normal 5-43 [facility] Comment on above: Performed By: #### 2 375938, 1594745, 4501610, 38592006, 7347049 #### [facility] [address] [place] [address] Bilirubin [Mass/Vol] 0.3 mg/dL Normal 0.0-1.1 [facility] Comment on above: Performed By: #### 2 580718, 5065276, 6892225, 58763557, 1527523 #### [facility] [address] [place] [address] Calcium [Mass/Vol] 9.5 mg/dL Normal 8.9-11.1 [facility] Comment on above: Performed By: #### 2 408653, 3409086, 8270861, 00776762, 0276441 #### [facility] [address] [place] [address] Chloride [Moles/Vol] 108 mmol/L Normal 101-111 [facility] Comment on above: Performed By: #### 2 187379, 8259514, 2298112, 29930703, 0394300 #### [facility] [address] [place] [address] CO2 [Moles/Vol] 28 mmol/L Normal 21-31 [facility] Comment on above: Performed By: #### 2 680093, 1109437, 8541897, 50741336, 1245899 #### [facility] [address] [place] [address] Creatinine [Mass/Vol] 1.0 mg/dL Normal 0.5-1.3 [facility] Comment on above: Performed By: #### 2 255304, 4032990, 3960425, 08773136, 1614860 #### [facility] [address] [place] [address] Globulin (S) [Mass/Vol] 2.3 g/dL Normal 1.4-4.0 [facility] Comment on above: Performed By: #### 2 125040, 5754264, 5037216, 77249681, 3438685 #### [facility] [address] [place] [address] Glucose [Mass/Vol] 81 mg/dL Normal 55-199 [facility] Comment on above: Performed By: #### 2 035054, 4560031, 5859742, 10452012, 7658315 #### [facility] [address] [place] [address] Potassium [Moles/Vol] 4.4 mmol/L Normal 3.5-5.3 [facility] Comment on above: Performed By: #### 2 462684, 2785793, 4741405, 98506526, 7556241 #### [facility] [address] [place] [address] Protein [Mass/Vol] 6.6 g/dL Normal 6.0-7.8 [facility] Comment on above: Performed By: #### 2 968807, 7432300, 6776769, 13452472, 8911577 #### [facility] [address] [place] [address] Sodium [Moles/Vol] 142 mmol/L Normal 135-145 [facility] Comment on above: Performed By: #### 2 698903, 4189008, 1917235, 82455850, 8133472 #### [facility] [address] [place] [address] Urea nitrogen [Mass/Vol] 16 mg/dL Normal 5-21 [facility] Comment on above: Performed By: #### 2 558780, 7589292, 8116865, 10308588, 0605037 #### [facility] [address] [place] [address] Urea nitrogen/Creatinine [Mass ratio] 16 No Units Normal 10-20 [facility] Comment on above: Performed By: #### 2 809658, 1826128, 3486603, 05030013, 2057257 #### [facility] [address] [place] [address] HEMATOLOGYOrdered By: SYSTEM SYSTEM on 07-17-2023 Erythrocyte [...] 07-17-2023 Cholesterol [Mass/Vol] 137 mg/dL Normal 120-200 [facility] Comment on above: Performed By: #### 2 628016, 1959434, 5268273, 59958192, 4331431 #### [facility] [address] [place] [address] Cholesterol in HDL [Mass/Vol] 33 mg/dL Invalid Interpretation Code [facility] Comment on above: Result Comment: '>= 60 LOW RISK' '<= 40 HIGH RISK' Performed By: #### 2 240838, 9529681, 0665342, 11760428, 0237061 #### [facility] [address] [place] [address] Cholesterol in LDL [Mass/Vol] 87 mg/dL Normal <=129 [facility] Comment on above: Performed By: #### 2 896249, 7571285, 9055345, 22777898, 2812071 #### [facility] [address] [place] [address] Cholesterol in VLDL [Mass/Vol] 21 mg/dL Normal 7-40 [facility] Comment on above: Performed By: #### 2 672196, 6458843, 8305602, 48189012, 8451205 #### [facility] [address] [place] [address] Triglyceride [Mass/Vol] 106 mg/dL Normal <=149 [facility] Comment on above: Performed By: #### 2 441218, 6146268, 7595750, 54461960, 3020384 #### [facility] [address] [place] [address] Physician Orderon 07-17-2023 Physician Order [id number]#[id number] Normal [facility] Valproic Acidon 07-17-2023 Valpro Acid Lvl 115 microgram/mL Abnormal 50-99 [facility] Comment on above: Result Comment: Crit ical Result [id number] Called to and read back by: SAMIA Fontanez at: 07/17/2023 20:33:29 by:[id number] Critical Result Verified by Repeat Analysis Called Dr. Andrewss office, Samia is giving result to Dr. Corbin Andrews called back and took critical as well. Performed By: #### 2 113142, 4081089, 8030443, 91282131, 7541215 #### [facility] [address] [place] [address] eGFRon 07-17-2023 eGFR 100 mL/min/1.73 m2 Normal >=59 [facility] Comment on above: Order Comment: Order added by Discern Expert. Performed By: #### 2 187211, 3984909, 6405980, 71322156, 5485432 #### [facility] [address] [place] [address] CHEMISTRYOrdered By: SYSTEM SYSTEM on 03-06-2023 Valproate [Moles/Vol] 96 microgram/mL Normal 50 - 99 mcg/mL [facility] Physician Orderon 03-06-2023 Physician Order [id number]#[id number] Normal [facility] Valproic Acidon 03-06-2023 Valproate [Moles/Vol] 96 microgram/mL Normal 50-99 [facility] Comment on above: Performed By: #### 2 316038 #### [facility] [address] [place] [address] Progress Noteson 01-15-2023 Creative Assistant Authentication Interface Message Text Normal [facility] [facility] Creative Assistant Authentication Interface Message Text ----- Sunday, January 15, 2023 at 2:05:02 PM ----- ----- Provider: [id number] - Ro Chinchilla Hygienist -- Clinic: [place] ----- OR EVALUATION Patient presents for evaluation [...] a time slot becomes available. Legal Guardian: [facility] [phone] Nursing Dept [phone] NOTE: Dr. Del Valle did the exam Ro Farnsworth [facility] Next Visit: OR ----- Signed on Monday, January 16, 2023 at 8:42:19 AM ----- ----- Provider: [id number] Soumya Maher DDS -- Clinic: [place] ----- Normal [facility] AUTO DIFFon 07-24-2022 BASO # 0.0 103/ul Normal 0.0-0.1 [facility] Comment on above: Performed By: #### C BC #### [facility] [address] [place] [address] Dr. Theresa Azevedo Basophils/100 WBC (Bld) 0.7 % Normal 0.2-2.0 [facility] Comment on above: Performed By: #### C BC #### [facility] [id number] Theresa Azevedo EO # 0.2 103/ul Normal 0.0-0.7 [facility] Comment on above: Performed By: #### C BC #### [facility] [address] [place] [address] Dr. Theresa Azevedo Eosinophils/100 WBC (Bld) 3.2 % Normal 0.9-7.0 [facility] Comment on above: Performed By: #### C BC #### [facility] [address] [place] [address] Dr. Theresa Azevedo Erythrocyte distribution width (RBC) [Ratio] 12.1 % Normal 11.0-15.0 [facility] Comment on above: Performed By: #### C BC #### [facility] [address] [place] [address] Dr. Theresa Azevedo Hematocrit (Bld) [Volume fraction] 44.9 % Normal 42.0-54.0 [facility] Comment on above: Performed By: #### C BC #### [facility] [address] [place] [address] Dr. Theresa Azevedo Hemoglobin (Bld) [Mass/Vol] 14.8 g/dL Normal 14.0-18.0 [facility] Comment on above: Performed By: #### C BC #### [facility] [address] [place] [address] Dr. Theresa Azevedo IG # 0.06 10e3/ul Critically high 0.00-0.03 [facility] Comment on above: Performed By: #### C BC #### [facility] [address] [place] [address] Dr. Theresa Azevedo IG % 1.1 % Critically high 0.0-0.[address] [facility] Comment on above: Performed By: #### C BC #### [facility] [address] [place] [address] Dr. Theresa Azevedo LYMPH # 1.9 103/ul Normal 1.2-3.8 [facility] Comment on above: Performed By: #### C BC #### [facility] [address] [place] [address] Dr. Theresa Azevedo Lymphocytes/100 WBC (Bld) 33.9 % Normal 20.5-60.0 [facility] Comment on above: Performed By: #### C BC #### [facility] [address] [place] [address] Dr. Theresa Azevedo MANUAL DIFF REQ NO Normal [facility] Comment on above: Performed By: #### C BC #### [facility] [address] [place] [address] Dr. Theresa Azevedo MCH (RBC) [Entitic mass] 30.1 pg Normal 25.9-34.0 [facility] Comment on above: Performed By: #### C BC #### [facility] [address] [place] [address] Dr. Theresa Azevedo MCHC (RBC) [Mass/Vol] 33.0 g/dL Normal 29.9-35.2 [facility] Comment on above: Performed By: #### C BC #### [facility] [address] [place] [address] Dr. Theresa Azevedo MCV (RBC) [Entitic vol] 91.3 fL Normal 80.0-94.0 [facility] Comment on above: Performed By: #### C BC #### [facility] [address] [place] [address] Dr. Theresa Azevedo MONO # 0.4 103/ul Normal 0.3-0.8 [facility] Comment on above: Performed By: #### C BC #### [facility] [address] [place] [address] Dr. Theresa Azevedo Monocytes/100 WBC (Bld) 6.9 % Normal 1.7-12.0 [facility] Comment on above: Performed By: #### C BC #### [facility] [address] [place] [address] Dr. Theresa Azevedo NEUT # 3.1 103/ul Normal 1.4-6.5 [facility] Comment on above: Performed By: #### C BC #### [facility] [address] [place] [address] Dr. Theresa Azevedo Neutrophils/100 WBC (Bld) 54.2 % Normal 43.0-75.0 [facility] Comment on above: Performed By: #### C BC #### [facility] [address] [address] [address] Theresa Azevedo Platelet mean volume (Bld) [Entitic vol] 10.5 fL Normal 9.5-13.5 [facility] Comment on above: Performed By: #### C BC #### [facility] [address] [address] [address] Theresa Azevedo PLT 221 103/ul Normal 150-450 [facility] Comment on above: Performed By: #### C BC #### [facility] [address] [address] [address] Theresa Azevedo RBC 4.92 106/ul Normal 4.70-6.10 [facility] Comment on above: Performed By: #### C BC #### [facility] [address] [address] [address] Theresa Azevedo WBC 5.7 103/ul Normal 4.0-11.0 [facility] Comment on above: Performed By: #### C BC #### [facility] [address] [address] [address] Theresa Azevedo LIPID PROFILEon 07-24-2022 CHOL-HDL RATIO NORM SEE BELOW Normal [facility] Comment on above: Result Comment: 3.3 - 4.4 LOW RISK 4.4 - 7.1 AVERAGE RISK 7.1 - 11.0 MODERATE RISK >11.0 HIGH RISK Performed By: #### L IPID, CMP #### [facility] [address] [place] [address] Dr. Theresa Azevedo Cholesterol [Mass/Vol] 169 mg/dL Normal <=200 [facility] Comment on above: Performed By: #### L IPID, CMP #### [facility] [address] [place] [address] Dr. Theresa Azevedo Cholesterol in HDL [Mass/Vol] 28 mg/dL Critically low 40-60 [facility] Comment on above: Performed By: #### L IPID, CMP #### [facility] [address] [place] [address] Dr. Theresa Azevedo Cholesterol in LDL [Mass/Vol] 118.8 mg/dL Normal [facility] Comment on above: Performed By: #### L IPID, CMP #### [facility] [address] [address] [address] Theresa Azevedo Cholesterol.total/Cho lesterol in HDL [Mass ratio] 6.0 {ratio} Normal [facility] Comment on above: Performed By: #### L IPID, CMP #### [facility] [address] [address] [address] Theresa Azevedo HDL NORMAL > or = 60 mg/dl - LOW CARDIOVASCULAR RISK <40 mg/dl - HIGH CARDIOVASCULAR RISK Normal [facility] Comment on above: Performed By: #### L IPID, CMP #### [facility] [address] [address] [address] Theresa Azevedo LDL CALC NORMAL SEE BELOW Normal [facility] Comment on above: Result Comment: <100 mg/dl OPTIMAL 100 - 129 mg/dl NEAR OR ABOVE OPTIMAL 130 - 159 mg/dl BORDERLINE HIGH 160 - 189 mg/dl HIGH >190 mg/dl VERY HIGH Performed By: #### L IPID, CMP #### [facility] [address] [address] [address] Theresa Azevedo Triglyceride [Mass/Vol] 111 mg/dL Normal <=150 [facility] Comment on above: Performed By: #### L IPID, CMP #### [facility] [address] [address] [address] Theresa Azevedo VLDL CALC 22.2 mg/dL Normal [facility] Comment on above: Performed By: #### L IPID, CMP #### [facility] [address] [address] [address] Theresa Azevedo PROF 14(COMP METB)on 023 Albumin [Mass/Vol] 3.5 g/dL Normal 3.4-5.0 [facility] Comment on above: Performed By: #### L IPID, CMP #### [facility] [facility] [address] [address] [address] Theresa Azevedo Albumin/Globulin [Mass ratio] 0.9 {ratio} Normal [facility] Comment on above: Performed By: #### L IPID, CMP #### [facility] [address] [address] [address] Theresa Azevedo ALP [Catalytic activity/Vol] 55 U/L Normal 46-116 [facility] Comment on above: Performed By: #### L IPID, CMP #### [facility] [address] [address] [address] Theresa Azevedo ALT [Catalytic activity/Vol] 16 U/L Normal 16-63 [facility] Comment on above: Performed By: #### L IPID, CMP #### [facility] [address] [address] [address] Theresa Azevedo Anion gap [Moles/Vol] 10.9 mmol/L Normal [facility] Comment on above: Performed By: #### L IPID, CMP #### [facility] [address] [address] [address] Theresa Azevedo AST [Catalytic activity/Vol] 12 U/L Critically low 15-37 [facility] Comment on above: Performed By: #### L IPID, CMP #### [facility] [address] [address] [address] Theresa Azevedo Bilirubin [Mass/Vol] 0.4 mg/dL Normal 0.2-1.0 [facility] Comment on above: Performed By: #### L IPID, CMP #### [facility] [address] [address] [address] Theresa Azevedo Calcium [Mass/Vol] 9.5 mg/dL Normal 8.5-10.1 [facility] Comment on above: Performed By: #### L IPID, CMP #### [facility] [address] [address] [address] Theresa Azevedo Chloride [Moles/Vol] 106 mmol/L Normal 98-107 [facility] Comment on above: Performed By: #### L IPID, CMP #### [facility] [address] [address] [address] Theresa Azevedo CO2 [Moles/Vol] 31.1 mmol/L Normal 21.0-32.0 [facility] Comment on above: Performed By: #### L IPID, CMP #### [facility] [address] [address] [address] Theresa Azevedo Creatinine [Mass/Vol] 0.79 mg/dL Normal 0.70-1.30 [facility] Comment on above: Performed By: #### L IPID, CMP #### [facility] [address] [address] [address] Theresa Azevedo EGFR-AF SERBIAN >60 Normal >=60 [facility] Comment on above: Performed By: #### L IPID, CMP #### [facility] [address] [address] [address] Theresa Azevedo EGFR-NON AF SERBIAN >60 Normal >=60 [facility] Comment on above: Performed By: #### L IPID, CMP #### [facility] [address] [address] [address] Theresa Azevedo Globulin (S) [Mass/Vol] 4.1 g/dL Normal [facility] Comment on above: Performed By: #### L IPID, CMP #### [facility] [address] [address] [address] Theresa Azevedo Glucose [Mass/Vol] 90 mg/dL Normal 74-106 [facility] Comment on above: Performed By: #### L IPID, CMP #### [facility] [address] [address] [address] Theresa Azevedo Potassium [Moles/Vol] 4.0 mmol/L Normal 3.5-5.1 [facility] Comment on above: Performed By: #### L IPID, CMP #### [facility] [address] [address] [address] Theresa Azevedo Protein [Mass/Vol] 7.6 g/dL Normal 6.4-8.2 [facility] Comment on above: Performed By: #### L IPID, CMP #### [facility] [address] [address] [address] Theresa Azevedo Sodium [Moles/Vol] 144 mmol/L Normal 136-145 [facility] Comment on above: Performed By: #### L IPID, CMP #### [facility] [address] [place], [place] [address] Dr. Theresa Azevedo Urea nitrogen [Mass/Vol] 13.0 mg/dL Normal 7.0-18.0 [facility] Comment on above: Performed By: #### L IPID, CMP #### [facility] [address] [address] [address] Theresa Azevedo Urea nitrogen/Creatinine [Mass ratio] 16.5 mg/mg Normal [facility] Comment on above: Performed By: #### L IPID, CMP #### [facility] [address] [address] [address] Theresa Azevedo DEPAKENE/ VALPROIC ACIDon DEPAKENE 97.6 ug/ml Normal 50.0-100.0 [facility] Comment on above: Performed By: #### V ALP #### [facility] [address] [address] [address] Theresa Azevedo Encounters Encounter Date Encounter Type Care Provider Facility Start: 04-18-2024 End: 04-18-2024 Letter encounter [facility] Start: 12-17-2023 End: 12-17-2023 ambulatory IRASEMA ANDREWS [place] [place]: 12-17-2023 End: 12-17-2023 Patient encounter procedure IRASEMA ANDREWS [facility] Start: 07-17-2023 End: 07-17-2023 Lab Drop off IRASEMA ANDREWS [facility] Start: 07-17-2023 End: 07-17-2023 ambulatory IRASEMA NADREWS [facility] Start: 03-06-2023 End: 03-06-2023 ambulatory IRASEMA ANDREWS Facility[facility] Start: 03-06-2023 End: 03-06-2023 Lab Drop off IRASEMA ANDREWS [facility] Start: 01-15-2023 End: 01-17-2023 ambulatory UNKNOWN PROVIDER Facility:[facility] Start: 01-15-2023 End: 01-17-2023 Patient encounter procedure Ro Heckart [facility] Work Phone: [facility] Start: 07-24-2022 End: 07-25-[address] IRASEMA ANDREWS Facility:[facility] Start: 04-29-2022 [facility] Start: 04-03-2022 End: 04-04-[address] IRASEMA ANDREWS Facility:[facility] Start: 08-29-2021 End: 08-30-2021 Patient encounter procedure Lima Bazna [facility] Work Phone: [facility] Plan of Treatment Date Care Activity Detail Author Start: 10-15-2037 Shingles (RZV) Vacci ne (1 of 2) Shingles (RZV) Vaccine (1 of 2) [facility] Start: 09-22-2029 Tetanus vaccination [facility] Start: 12-22-2023 COVID-19 Vaccine ( season) COVID-19 Vaccine ( season) [facility] Start: 12-22-2023 Influenza vaccination [facility] Start: 12-21-2022 Influenza vaccination Influenza Vacc ine (#1) [facility] Start: 10-15-2022 Lipid panel Cholesterol [facility] Start: 01-20-2022 Influenza vaccination Influenza Vacc ine (#1) [facility] Start: 10-15-2014 HPV Vaccine (optiona l start 27-45 years) HPV Vaccine (optional start 27-45 years) [facility] Start: 09-20-2008 [facility] Start: 10-15-2006 Hepatitis A (HAV) Va ccine (optional start 19+ years) Hepatitis A (HAV) Vaccine (optional start 19+ years) [facility] Start: 10-15-2006 Hepatitis B vaccination Hepati tis B (HBV) Vaccine (1 of 3 - 19+ 3-dose series) [facility] Start: 10-15-2005 Hepatitis C screening Hepatitis C An tibody [facility] Start: 10-15-2002 HIV screening HIV Test [facility] Start: 1985 COVID-19 Vaccine ( formulation) COVID-19 Vaccine ( formulation) [facility] Immunizations Immunization Date Immunization Notes Care Provider Amparo garcia 02-15-2021 influenza, injectabl e, quadrivalent, preservative free Lima Beni [facility] Work Phone: [facility] 02-15-2021 influenza virus vacc ine, unspecified formulation [facility] 01-27-2020 influenza, injectabl e, quadrivalent, preservative free [facility] Work Phone: [facility] 09-23-2019 tetanus toxoid, redu regina diphtheria toxoid, and acellular pertussis vaccine, adsorbed [facility] Work Phone: [facility] 01-29-2018 influenza, injectabl e, quadrivalent, preservative free [facility] Work Phone: [facility] 02-13-2017 influenza, injectabl e, quadrivalent, contains preservative [facility] Work Phone: [facility] 02-10-2015 influenza, injectabl e, quadrivalent, preservative free [facility] Work Phone: [facility] 03-09-2009 novel influenza-H1N1 -09, preservative-free, injectable [facility] Work Phone: [facility] 02-12-2008 influenza virus vacc ine, whole virus [facility] Work Phone: [facility] 02-19-2006 influenza, seasonal, injectable [facility] Work Phone: [facility] 10-30-2001 measles, mumps and r ubella virus vaccine [facility] Work Phone: [facility] 05-31-1999 diphtheria, tetanus toxoids and acellular pertussis vaccine, unspecified formulation [facility] Work Phone: [facility] Payers Date Payer Category Payer Dental --Stand Alone DENTAL-MEDI CAID [id number] 2008 Medicaid [id number] 2007 Medicare MEDICARE MEDICAR E PART A & B [id number] 2007-Present [address] [place] [address] Medicare [id number] 2007 Medicare FFS MEDICARE [id number] 1987 Unknown [id number] 1987 Unknown [id number] 1987 Unknown [id number] 1987 Unknown [id number] 27 1987 Unknown [id number] 1959 Medicaid [id number] 1957 Medicare [id number] Unknown [id number] Social History Date Type Detail Facility Start: 07-22-2020 Tobacco smoking status NHIS [facility] smoked [facility] Work Phone: Start: 07-22-2020 Tobacco use and exposure Smokeless tobacco non-user [facility] Start: 1985 [facility] Start: 07-29-2020 Gender identity Not on file [facility] Tobacco smoking status No Smoking Status Entered [facility] Start: 07-29-2020 History of Social function [facility] Start: 02-24-2012 Sex Male (finding) [facility] History of Present illness Narrative 01-15-2023 Ro Chinchilla [facility] - 01/15/2023 1:12 PM EDTRaRo armando [facility] - 01/15/2023 12:00 AM EDT Note Date & Type Note Facility 01-15-2023 History of Presen t illness Narrative ----- Sunday, January 15, 2023 at 2:05:02 PM ----- ----- Provider: [id number] Cecily Xavier -- Clinic: [place] ----- OR EVALUATION Patient presents for evaluation [...] a time slot becomes available. Legal Guardian: [facility] [phone] Nursing Dept [phone] NOTE: Dr. Del Valle did the exam Ro Farnsworth [facility] Next Visit: OR ----- Signed on Monday, January 16, 2023 at 8:42:19 AM ----- ----- Provider: [id number] Soumya Maher DDS -- Clinic: [place] ----- documented in this encounter [facility] History of Present illness Narrative 08-29-2021 Lima Bazan [facility] - 08/29/2021 11:22 AM EDT Note Date & Type Note Facility 08-29-2021 History of Presen t illness Narrative ----- Sunday, August 29, 2021 at 3:36:11 PM ----- ----- Provider: [id number] Soumya Bazan Hygienist -- Clinic: [place] ----- [facility], Pt is ready for tx Pt presented [...] Advised to follow-up in 1 year. Lima MELTON [place]: RECALL/ 1 year. ----- Signed on Sunday, August 29, 2021 at 3:45:45 PM ----- ----- Provider: Emre Maher DDS -- Clinic: [place] ----- documented in this encounter [facility] Evaluation + Plan note Note Date & Type Note Facility Evaluation + Plan note No data available for this section [facility] Hospital Discharge instructions Note Date & Type Note Facility Hospital Discharge instructions No data available for this section [facility] Progress note Note Date & Type Note Facility Progress note No data available for this section [facility] Summary Purpose Family History No Family [...] and content) DATE CREATED AUTHOR 07/29/2022 [facility] DATE CREATED AUTHOR AUTHOR'S ORGANIZ ATION 01/23/2023 [facility] DATE CREATED AUTHOR AUTHOR'S ORGANIZ ATION 12/25/2023 [facility] Patient Care team informatio n (unrecognized section and content) Personnel Name: IRASEMA ANDREWS DO Address: Address: [address] [place] [address] Personnel Name: IRASEMA ANDREWS DO Address: Address: [address] [place] [address] Personnel Name: IRASEMA ANDREWS DO Address: Address: [address] [place] [address] FOR RECORDS PERTAINING TO PATIENTS WHO ARE [...] BE BASED ON THE PRIMARY CLINICAL RECORDS. [facility] [email or web address] [facility]. provides no warranty or guarantee of the accuracy or completeness of information in this document.
[2024-06-30 07:41] LABS: Basophils Percent Auto 0.5 % (0.2-2.0); Eosinophils Absolute Auto 0.2 10^3/uL (0.0-0.7); Eosinophils Percent Auto 3.1 % (0.9-7.0); Hematocrit 45.5 % (42.0-54.0); Hemoglobin 14.9 g/dL (14.0-18.0); Immature Granulocytes Abs Auto 0.01 10^3/uL (0.00-0.03); Immature Granulocytes Pct Auto 0.2 % (0.0-0.5); Lymphocytes Absolute Auto 1.9 10^3/uL (1.2-3.8); Lymphocytes Percent Auto 32.4 % (20.5-60.0); Mean Corpuscular HGB Conc 32.7 g/dL (29.9-35.2); Mean Corpuscular Hemoglobin 30.6 pg (25.9-34.0); Mean Corpuscular Volume 93.4 fL (80.0-94.0); Mean Platelet Volume 11.8 fL (9.5-13.5); Monocytes Absolute Auto 0.6 10^3/uL (0.3-0.8); Monocytes Percent Auto 9.9 % (1.7-12.0); Neutrophils Absolute Auto 3.2 10^3/uL (1.4-6.5); Neutrophils Percent Auto 53.9 % (43.0-75.0); Platelet Count 161 10^3/uL (150-450); Red Blood Count 4.87 10^6/uL (4.70-6.10); Red Cell Distribution Width 12.2 % (11.0-15.0); White Blood Count 5.9 10^3/uL (4.0-11.0)
[2024-06-30 09:09] LABS: Alanine Aminotransferase 11 U/L (16-63); Albumin Globulin Ratio 1.1; Albumin Level 3.6 g/dL (3.4-5.0); Alkaline Phosphatase 52 U/L (46-116); Anion Gap 11.8; Aspartate Amino Transferase 16 U/L (15-37); BUN Creatinine Ratio 14.7; Bilirubin Total 0.3 mg/dL (0.2-1.0); Calcium 9.2 mg/dL (8.5-10.1); Carbon Dioxide 29.5 mmol/L (21.0-32.0); Chloride 108 mmol/L (98-107); Chol HDL Ratio 3.8; Cholesterol 165 mg/dL (<=200); Estimated GFR (African America >60 (>=60 mL/min/1.73m^2); Estimated GFR (Non-African Ame >60 (>=60 mL/min/1.73m^2); Globulin 3.2 g/dL; Glucose 95 mg/dL (74-106); HDL Cholesterol 44 mg/dL (40-60); LDL Cholesterol Calculated 98.4 mg/dL; Potassium 4.3 mmol/L (3.5-5.1); Sodium 145 mmol/L (136-145); Total Protein 6.8 g/dL (6.4-8.2); Triglycerides 113 mg/dL (<=150); VLDL CHOLESTEROL 22.6 mg/dL
[2024-06-30 09:50] LABS: Valproic Acid 50.2 ug/mL (50.0-100.0)
== END 2024-06-30 06:55 | disposition home or self-care (01) ==
LOC: LAB 06:56
PROVIDERS: PCP Family Medicine; Visit Provider Family Medicine
DX: Z79.899 Other long term (current) drug therapy (principal); E78.5 Hyperlipidemia, unspecified; K59.00 Constipation, unspecified; F42.9 Obsessive-compulsive disorder, unspecified; F31.9 Bipolar disorder, unspecified; F41.9 Anxiety disorder, unspecified
CPT/HCPCS: 36415; 80053; 80061; 80164; 85025

== ENCOUNTER 2024-11-26 14:45 | Outpatient (OUT) | payer MEDICARE, MEDICAID, SELFPAY ==
--- NOTE | 2024-11-26 15:00 | ECG_ITS ---
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 Measurements Intervals Duncan Rate: 87 P: 39 FL: 154 QRS: 23 QRSD: 100 T: 15 QT: 355 QTc: 428 Interpretive Statements SINUS RHYTHM VOLTAGE CRITERIA FOR LVH [MEETS CRITERIA IN ONE OF: R(aVL), S(V1), R(V5), R(V5/V6)+S(V1)] Cannot rule out inferior myocardial infarction, probably old Abnormal ECG No previous ECG available for comparison Electronically Signed On 11-28-2024 7:31:51 EDT by MICHELE REGALADO M.D.
== END 2024-11-26 14:46 | disposition home or self-care (01) ==
PROVIDERS: PCP Family Medicine; Visit Provider Family Medicine
DX: I49.8 Other specified cardiac arrhythmias (principal)
CPT/HCPCS: 93005

== ENCOUNTER 2024-12-11 09:35 | Outpatient (OUT) | payer MEDICARE, MEDICAID, SELFPAY ==
--- OUTSIDE RECORDS SUMMARY | 2024-12-11 09:39 | XMS_ITS | CCD ---
Author Organization [facility] Care Team Providers Care Field Software Engineer Name Role Phone Unavailable Primary Care Provider Unavailabl e ANDREWS, DR IRASEMA Linder Admitting Unavailable ANDREWS, DR IRASEMA Linder Consulting Unavailable ANDREWS, DR IRASEMA Linder Attending Unavailable ANDREWS, DR IRASEMA Linder Attending Unavailable ANDREWS, DR IRASEMA Linder Admitting Unavailable ANDREWS, DR IRASEMA Linder Consulting Unavailable Unavailable Primary Care Provider Unavailabl e PROVIDER, UNKNOWN Attending Unavailable PROVIDER, UNKNOWN Admitting Unavailable ANDREWSIRASEMA Primary Care Physician IRASEMA ANDREWS Referring Unavailable ANDREWS, IRASEMA Admitting Unavailable ANDREWS, IRASEMA Attending Unavailable ANDREWS, IRASEMA Admitting Unavailable ANDREWS, IRASEMA Attending Unavailable ANDREWS, IRASEMA Admitting Unavailable ANDREWS, IRASEMA Attending Unavailable Allergies Allergy Classification Reported Allergen(s) Allergy Type Date of Onset Reaction(s) Facility (5 sources) Ketamine; Translations: [KETAMINE] Drug Allergy 1 Rash [facility] Work Phone: (5 sources) [employer]; Translations: [ANIMALS] Propensity to adverse reactions to substance 8 [facility] (5 sources) Pollen; Translations: [POLLEN EXTRACT] Propensity to adverse reactions to drug 8 [facility] (5 sources) redtop grass pollen extract; Translations: [GRAMINEAE POLLENS] Drug Allergy 8 [facility] Medications Current Medications Medication Drug Class(es) [...] mg oral capsule (4 sources) Start: 07-22-2020 Olivia-3 1000 MG CAPS Take by mouth 2 [...] medicated pad (4 sources) Witch [place] ([facility] [place]) 50 % PADS Apply [...] 04-07-2022 Chronic Other aftercare (4 sources) Other snf (current) drug therapy; Translations: [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 CBC w/Indiceson 07-17-2023 Erythrocyte distribution width (RBC) [Ratio] 13.1 % Normal 10.9-14.[address] [facility] Comment on above: Performed By: #### 2 112536, 0616316, 6458148, 59406353, 6816089 #### [facility] [address] [place] [address] Hematocrit (Bld) [Volume fraction] 43.8 % Normal 37.7-49.[address] [facility] Comment on above: Performed By: #### 2 710103, 3629079, 9607676, 35432594, 3948721 #### [facility] [address] [place] [address] Hemoglobin (Bld) [Mass/Vol] 14.5 g/dL Normal 13.5-17.[address] [facility] Comment on above: Performed By: #### 2 050178, 0295111, 5977471, 70906484, 0920618 #### [facility] [address] [place] [address] MCH (RBC) [Entitic mass] 30.5 pg Normal 27.0-34.[address] [facility] Comment on above: Performed By: #### 2 231283, 2413641, 4381279, 59374306, 1674900 #### [facility] [address] [place] [address] MCHC (RBC) [Mass/Vol] 33.2 g/dL Normal 31.4-36.[address] [facility] Comment on above: Performed By: #### 2 680273, 8386597, 8176203, 96637523, 8217866 #### [facility] [address] [place] [address] MCV (RBC) [Entitic vol] 92.0 fL Normal 80.0-100.[address] [facility] Comment on above: Performed By: #### 2 008033, 5144384, 8089040, 06162933, 2041937 #### [facility] [address] [place], [place] [address] Platelet mean volume (Bld) [Entitic vol] 10.6 fL Normal 6.4-10.[address] [facility] Comment on above: Performed By: #### 2 870686, 2414250, 4265508, 48937586, 7884472 #### [facility] [address] [place], [place] [address] Platelets (Bld) [#/Vol] 147.0 E9/L Low 150.0-500.[address] [facility] Comment on above: Performed By: #### 2 705685, 3499391, 5384563, 13011480, 1424868 #### [facility] [address] [place] [address] RBC (Bld) [#/Vol] 4.8 E12/L Normal 4.3-5.[address] [facility] Comment on above: Performed By: #### 2 272575, 4254410, 8367466, 07600732, 0796854 #### [facility] [address] [place] [address] RBC size Nom (Bld) NORMAL Invalid Interpretation Code [facility] Comment on above: Performed By: #### 2 737589, 2377751, 1317423, 60185790, 2340034 #### [facility] [address] [place] [address] WBC corrected for nucl RBC Auto (Bld) [#/Vol] 5.1 E9/L Normal 4.0-11.[address] [facility] Comment on above: Performed By: #### 2 198405, 4244933, 8594224, 77226382, 1180956 #### [facility] [address] [place] [address] CHEMISTRYOrdered By: SYSTEM SYSTEM on 07-17-2023 Albumin [...] back by: SAMIA Fontanez at: 07/17/2023 20:33:29 by:[email or web address] Critical Result Verified by Repeat Analysis Called Dr. Mitchell office, Samia is giving result to Dr. Corbin Andrews called back and took critical as well. CMPon 07-17-2023 Albumin [Mass/Vol] 4.3 g/dL Normal 3.3-5.[address] [facility] Comment on above: Performed By: #### 2 361172, 3144473, 4502406, 64304115, 3087424 #### [facility] [address] [place] [address] Albumin/Globulin (S) [Mass conc ratio] 1.9 Normal 1.1-2.[address] [facility] Comment on above: Performed By: #### 2 273869, 4862638, 0880027, 69846311, 5119080 #### [facility] [address] [place] [address] ALP [Catalytic activity/Vol] 44 Int._Unit/L Normal 21-[address] [facility] Comment on above: Performed By: #### 2 411872, 3704779, 3190905, 52674496, 0084326 #### [facility] [address] [place] [address] ALT No additional P-5'-P [Catalytic activity/Vol] 6 Int._Unit/L Normal 6-[address] [facility] Comment on above: Performed By: #### 2 059735, 9633815, 7352468, 87935117, 0079506 #### [facility] [address] [place] [address] Anion gap [Moles/Vol] 10 mmol/L Normal 6-[address] [facility] Comment on above: Performed By: #### 2 880091, 5523825, 1623035, 92219081, 6086002 #### [facility] [address] [place] [address] AST [Catalytic activity/Vol] 16 Int._Unit/L Normal 5-[address] [facility] Comment on above: Performed By: #### 2 344017, 7813287, 3232611, 65779931, 7171560 #### [facility] [address] [place] [address] Bilirubin [Mass/Vol] 0.3 mg/dL Normal 0.0-1.1 [facility] Comment on above: Performed By: #### 2 663352, 1496756, 3810215, 61032181, 2312140 #### [facility] [address] [place] [address] Calcium [Mass/Vol] 9.5 mg/dL Normal 8.9-11.[address] [facility] Comment on above: Performed By: #### 2 447805, 1221934, 2319224, 99793461, 3984790 #### [facility] [address] [place] [address] Chloride [Moles/Vol] 108 mmol/L Normal 101-111 [facility] Comment on above: Performed By: #### 2 557761, 0727888, 4445262, 42575436, 3784192 #### [facility] [address] [place] [address] CO2 [Moles/Vol] 28 mmol/L Normal 21-31 [facility] Comment on above: Performed By: #### 2 820381, 5871925, 1704816, 31994025, 0479275 #### [facility] [address] [place] [address] Creatinine [Mass/Vol] 1.0 mg/dL Normal 0.5-1.[address] [facility] Comment on above: Performed By: #### 2 483220, 8519158, 7654002, 62078630, 5065981 #### [facility] [address] [place] [address] Globulin (S) [Mass/Vol] 2.3 g/dL Normal 1.4-4.[address] [facility] Comment on above: Performed By: #### 2 341306, 6374439, 2921210, 43724263, 7725651 #### [facility] [address] [place] [address] Glucose [Mass/Vol] 81 mg/dL Normal 55-[address] [facility] Comment on above: Performed By: #### 2 303120, 3809324, 3221212, 35489089, 0989007 #### [facility] [address] [place] [address] Potassium [Moles/Vol] 4.4 mmol/L Normal 3.5-5.[address] [facility] Comment on above: Performed By: #### 2 401006, 6627309, 0854367, 93193020, 3408623 #### [facility] [address] [place] [address] Protein [Mass/Vol] 6.6 g/dL Normal 6.0-7.[address] [facility] Comment on above: Performed By: #### 2 916290, 2590780, 0241188, 42350564, 0612639 #### [facility] [address] [place] [address] Sodium [Moles/Vol] 142 mmol/L Normal 135-[address] [facility] Comment on above: Performed By: #### 2 584068, 5823511, 7048540, 49712007, 7380749 #### [facility] [address] [place] [address] Urea nitrogen [Mass/Vol] 16 mg/dL Normal 5-[address] [facility] Comment on above: Performed By: #### 2 080213, 9222274, 0434218, 56545444, 3356960 #### [facility] [address] [place] [address] Urea nitrogen/Creatinine [Mass ratio] 16 No Units Normal 10-[address] [facility] Comment on above: Performed By: #### 2 673855, 8472553, 6511436, 36431888, 9934367 #### [facility] [address] [place] [address] HEMATOLOGYOrdered By: SYSTEM SYSTEM on 07-17-2023 Erythrocyte [...] 07-17-2023 Cholesterol [Mass/Vol] 137 mg/dL Normal 120-[address] [facility] Comment on above: Performed By: #### 2 302142, 6714461, 6886514, 48471202, 3329871 #### [facility] [address] [place] [address] Cholesterol in HDL [Mass/Vol] 33 mg/dL Invalid Interpretation Code [facility] Comment on above: Result Comment: '>= 60 LOW RISK' '<= 40 HIGH RISK' Performed By: #### 2 651455, 8811339, 8708589, 22602425, 2392123 #### [facility] [address] [place] [address] Cholesterol in LDL [Mass/Vol] 87 mg/dL Normal <=[address] [facility] Comment on above: Performed By: #### 2 176187, 5883305, 0444520, 87422048, 3939447 #### [facility] [address] [place] [address] Cholesterol in VLDL [Mass/Vol] 21 mg/dL Normal 7-[address] [facility] Comment on above: Performed By: #### 2 672920, 6978212, 7199406, 87222632, 3721320 #### [facility] [address] [place] [address] Triglyceride [Mass/Vol] 106 mg/dL Normal <=[address] [facility] Comment on above: Performed By: #### 2 523820, 8433513, 5264430, 33794086, 1337422 #### [facility] [address] [place] [address] Physician Orderon 07-17-2023 Physician Order [id number] Normal [facility] Valproic Acidon 07-17-2023 Valpro Acid Lvl 115 microgram/mL Abnormal 50-[address] [facility] Comment on above: Result Comment: Crit ical Result S_[id number] Called to and read back by: SAMIA Fontanez at: 07/17/2023 20:33:29 by:[id number] Critical Result Verified by Repeat Analysis Called Dr. Andrewss office, Samia is giving result to Dr. Corbin Andrews called back and took critical as well. Performed By: #### 2 080443, 3671456, 8331458, 61586668, 4666390 #### [facility] [address] [place] [address] eGFRon 07-17-2023 eGFR 100 mL/min/1.73 m2 Normal >=[address] [facility] Comment on above: Order Comment: Order added by Discern Expert. Performed By: #### 2 807174, 4979635, 7436473, 68523882, 5566706 #### [facility] [address] [place] [address] CHEMISTRYOrdered By: SYSTEM SYSTEM on 03-06-2023 Valproate [Moles/Vol] 96 microgram/mL Normal 50 - 99 mcg/mL [facility] Remisol Physician Orderon 03-06-2023 Physician Order [id number] Normal [facility] Valproic Acidon 03-06-2023 Valproate [Moles/Vol] 96 microgram/mL Normal 50-[address] [facility] Comment on above: Performed By: #### 2 765307 #### [facility] [address] [place] [address] Progress Noteson 01-15-2023 Belly Roller Authentication Interface Message Text Normal [employer] Belly Roller Authentication Interface Message Text ----- Sunday, January 15, 2023 at 2:05:02 PM ----- ----- Provider: [id number] - Ro Chinchilla Hygienist -- Clinic: [place] ----- OR EVALUATION Patient presents for evaluation [...] a time slot becomes available. Legal Guardian: [facility] [phone] Nursing Dept [phone] NOTE: Dr. Del Valle did the exam Ro Farnsworth [facility] Next Visit: OR ----- Signed on Monday, January 16, 2023 at 8:42:19 AM ----- ----- Provider: [id number] Soumya Maher DDS -- Clinic: [place] ----- [facility] CBC AUTO DIFFon 07-24-2022 BASO # 0.0 103/ul Normal 0.0-0.1 [facility] Comment on above: Performed By: #### C BC #### [facility] [address] [place] [address] Dr. Theresa Azevedo Basophils/100 WBC (Bld) 0.7 % Normal 0.2-2.0 [facility] Comment on above: Performed By: #### C BC #### [facility] [id number] Theresa Azevedo EO # 0.2 103/ul Normal 0.0-0.7 [facility] Comment on above: Performed By: #### C BC #### [facility] [address] [place] [address] Dr. Theresa Azevedo Eosinophils/100 WBC (Bld) 3.2 % Normal 0.9-7.0 [facility] Comment on above: Performed By: #### C BC #### [facility] [address] [place] [address] Dr. Theresa Azevedo Erythrocyte distribution width (RBC) [Ratio] 12.1 % Normal 11.0-15.0 [facility] Comment on above: Performed By: #### C BC #### [facility] [address] [place] [address] Dr. Theresa Azevedo Hematocrit (Bld) [Volume fraction] 44.9 % Normal 42.0-54.0 [facility] Comment on above: Performed By: #### C BC #### [facility] [address] [place] [address] Dr. Theresa Azevedo Hemoglobin (Bld) [Mass/Vol] 14.8 g/dL Normal 14.0-18.0 [facility] Comment on above: Performed By: #### C BC #### [facility] [address] [place] [address] Dr. Theresa Azevedo IG # 0.06 10e3/ul Critically high 0.00-0.03 [facility] Comment on above: Performed By: #### C BC #### [facility] [address] [place] [address] Dr. Theresa Azevedo IG % 1.1 % Critically high 0.0-0.5 [facility] Comment on above: Performed By: #### C BC #### [facility] [address] [place] [address] Dr. Theresa Azevedo LYMPH # 1.9 103/ul Normal 1.2-3.8 [facility] Comment on above: Performed By: #### C BC #### [facility] [address] [place] [address] Dr. Theresa Azevedo Lymphocytes/100 WBC (Bld) 33.9 % Normal 20.5-60.0 [facility] Comment on above: Performed By: #### C BC #### [facility] [address] [place] [address] Dr. Theresa Azevedo MANUAL DIFF REQ NO Normal [facility] Comment on above: Performed By: #### C BC #### [facility] [address] [place] [address] Dr. Theresa Azevedo MCH (RBC) [Entitic mass] 30.1 pg Normal 25.9-34.0 [facility] Comment on above: Performed By: #### C BC #### [facility] [address] [place] [address] Dr. Theresa Azevedo MCHC (RBC) [Mass/Vol] 33.0 g/dL Normal 29.9-35.2 [facility] Comment on above: Performed By: #### C BC #### [facility] [address] [place] [address] Dr. Theresa Azevedo MCV (RBC) [Entitic vol] 91.3 fL Normal 80.0-94.0 [facility] Comment on above: Performed By: #### C BC #### [facility] [address] [place] [address] Dr. Theresa Azevedo MONO # 0.4 103/ul Normal 0.3-0.8 [facility] Comment on above: Performed By: #### C BC #### [facility] [address] [place] [address] Dr. Theresa Azevedo Monocytes/100 WBC (Bld) 6.9 % Normal 1.7-12.0 [facility] Comment on above: Performed By: #### C BC #### [facility] [address] [place] [address] Dr. Theresa Azevdeo NEUT # 3.1 103/ul Normal 1.4-6.5 [facility] Comment on above: Performed By: #### C BC #### [facility] [address] [place] [address] Dr. Theresa Azevedo Neutrophils/100 WBC (Bld) 54.2 % Normal 43.0-75.0 [facility] Comment on above: Performed By: #### C BC #### [facility] [address] [address] [address] Theresa Azevedo Platelet mean volume (Bld) [Entitic vol] 10.5 fL Normal 9.5-13.5 [facility] Comment on above: Performed By: #### C BC #### [facility] [address] [address] [address] Theresa Azevedo PLT 221 103/ul Normal 150-450 [facility] Comment on above: Performed By: #### C BC #### [facility] [address] [address] [address] Theresa Azevedo RBC 4.92 106/ul Normal 4.70-6.10 [facility] Comment on above: Performed By: #### C BC #### [facility] [address] [address] [address] Theresa Azevedo WBC 5.7 103/ul Normal 4.0-11.0 [facility] Comment on above: Performed By: #### C BC #### [facility] [address] [address] [address] Theresa Azevedo LIPID PROFILEon 07-24-2022 CHOL-HDL RATIO NORM SEE BELOW Normal [facility] Comment on above: Result Comment: 3.3 - 4.4 LOW RISK 4.4 - 7.1 AVERAGE RISK 7.1 - 11.0 MODERATE RISK >11.0 HIGH RISK Performed By: #### L IPID, CMP #### [facility] [address] [place] [address] Dr. Theresa Azevedo Cholesterol [Mass/Vol] 169 mg/dL Normal <=200 [facility] Comment on above: Performed By: #### L IPID, CMP #### [facility] [address] [place] [address] Dr. Theresa Azevedo Cholesterol in HDL [Mass/Vol] 28 mg/dL Critically low 40-60 [facility] Comment on above: Performed By: #### L IPID, CMP #### [facility] [address] [place] [address] Dr. Theresa Azevedo Cholesterol in LDL [Mass/Vol] 118.8 mg/dL Normal [facility] Comment on above: Performed By: #### L IPID, CMP #### [facility] [address] [address] [address] Theresa Azevedo Cholesterol.total/Cho lesterol in HDL [Mass ratio] 6.0 {ratio} Normal [facility] Comment on above: Performed By: #### L IPID, CMP #### [facility] [address] [address] [address] Theresa Azevedo HDL NORMAL > or = 60 mg/dl - LOW CARDIOVASCULAR RISK <40 mg/dl - HIGH CARDIOVASCULAR RISK Normal [facility] Comment on above: Performed By: #### L IPID, CMP #### [facility] [address] [address] [address] Theresa Azevedo LDL CALC NORMAL SEE BELOW Normal [facility] Comment on above: Result Comment: <100 mg/dl OPTIMAL 100 - 129 mg/dl NEAR OR ABOVE OPTIMAL 130 - 159 mg/dl BORDERLINE HIGH 160 - 189 mg/dl HIGH >190 mg/dl VERY HIGH Performed By: #### L IPID, CMP #### [facility] [address] [address] [address] Theresa Azevedo Triglyceride [Mass/Vol] 111 mg/dL Normal <=150 [facility] Comment on above: Performed By: #### L IPID, CMP #### [facility] [address] [address] [address] Theresa Azevedo VLDL CALC 22.2 mg/dL Normal [facility] Comment on above: Performed By: #### L IPID, CMP #### [facility] [address] [address] [address] Theresa Azevedo PROF 14(COMP METB)on 023 Albumin [Mass/Vol] 3.5 g/dL Normal 3.4-5.0 [facility] Comment on above: Performed By: #### L IPID, CMP #### [facility] [address] [address] [address] Theresa Azevedo Albumin/Globulin [Mass ratio] 0.9 {ratio} Normal [facility] Comment on above: Performed By: #### L IPID, CMP #### [facility] [address] [address] [address] Theresa Azevedo ALP [Catalytic activity/Vol] 55 U/L Normal 46-116 [facility] Comment on above: Performed By: #### L IPID, CMP #### [facility] [address] [address] [address] Theresa Azevedo ALT [Catalytic activity/Vol] 16 U/L Normal 16-63 [facility] Comment on above: Performed By: #### L IPID, CMP #### [facility] [address] [address] [address] Theresa Azevedo Anion gap [Moles/Vol] 10.9 mmol/L Normal [facility] Comment on above: Performed By: #### L IPID, CMP #### [facility] [address] [address] [address] Theresa Azevedo AST [Catalytic activity/Vol] 12 U/L Critically low 15-37 [facility] Comment on above: Performed By: #### L IPID, CMP #### [facility] [address] [address] [address] Theresa Azevedo Bilirubin [Mass/Vol] 0.4 mg/dL Normal 0.2-1.0 [facility] Comment on above: Performed By: #### L IPID, CMP #### [facility] [address] [address] [address] Theresa Azevedo Calcium [Mass/Vol] 9.5 mg/dL Normal 8.5-10.1 [facility] Comment on above: Performed By: #### L IPID, CMP #### [facility] [address] [address] [address] Theresa Azevedo Chloride [Moles/Vol] 106 mmol/L Normal 98-107 [facility] Comment on above: Performed By: #### L IPID, CMP #### [facility] [address] [address] [address] Theresa Azevedo CO2 [Moles/Vol] 31.1 mmol/L Normal 21.0-32.0 [facility] Comment on above: Performed By: #### L IPID, CMP #### [facility] [address] [address] [address] Theresa Azevedo Creatinine [Mass/Vol] 0.79 mg/dL Normal 0.70-1.30 [facility] Comment on above: Performed By: #### L IPID, CMP #### [facility] [address] [address] [address] Theresa Azevedo EGFR-AF EGYPTIAN >60 Normal >=60 [facility] Comment on above: Performed By: #### L IPID, CMP #### [facility] [address] [address] [address] Theresa Azevedo EGFR-NON AF EGYPTIAN >60 Normal >=60 [facility] Comment on above: Performed By: #### L IPID, CMP #### [facility] [address] [address] [address] Theresa Azevedo Globulin (S) [Mass/Vol] 4.1 g/dL Normal [facility] Comment on above: Performed By: #### L IPID, CMP #### [facility] [address] [address] [address] Theresa Azevedo Glucose [Mass/Vol] 90 mg/dL Normal 74-106 [facility] Comment on above: Performed By: #### L IPID, CMP #### [facility] [address] [address] [address] Theresa Azevedo Potassium [Moles/Vol] 4.0 mmol/L Normal 3.5-5.1 [facility] Comment on above: Performed By: #### L IPID, CMP #### [facility] [address] [address] [address] Theresa Azevedo Protein [Mass/Vol] 7.6 g/dL Normal 6.4-8.2 The [facility] Comment on above: Performed By: #### L IPID, CMP #### [facility] [address] [address] [address] Theresa Azevedo Sodium [Moles/Vol] 144 mmol/L Normal 136-145 The [facility] Comment on above: Performed By: #### L IPID, CMP #### [facility] [address] [place], [place] [address] Dr. Theresa Azevedo Urea nitrogen [Mass/Vol] 13.0 mg/dL Normal 7.0-18.0 [facility] Comment on above: Performed By: #### L IPID, CMP #### [facility] [address] [address] [address] Theresa Azevedo Urea nitrogen/Creatinine [Mass ratio] 16.5 mg/mg Normal [facility] Comment on above: Performed By: #### L IPID, CMP #### [facility] [address] [address] [address] Theresa Azevedo DEPAKENE/ VALPROIC ACIDon DEPAKENE 97.6 ug/ml Normal 50.0-100.0 [facility] Comment on above: Performed By: #### V ALP #### [facility] [address] [address] [address] Theresa Azevedo Encounters Encounter Date Encounter Type Care Provider Facility Start: 04-18-2024 End: 04-18-2024 Letter encounter [facility] Start: 12-17-2023 End: 12-17-2023 ambulatory IRASEMA ANDREWS Facility:[facility] Start: 12-17-2023 End: 12-17-2023 Patient encounter procedure IRASEMA ANDREWS [facility] Start: 07-17-2023 End: 07-17-2023 Lab Drop off IRASEMA ANDREWS [facility] Start: 07-17-2023 End: 07-17-2023 ambulatory IRASEMA ANDREWS Facility:[facility] Start: 03-06-2023 End: 03-06-2023 ambulatory IRASEMA ANDREWS Facility:[facility] Start: 03-06-2023 End: 03-06-2023 Lab Drop off IRASEMA ANDREWS [facility] Start: 01-15-2023 End: 01-17-2023 ambulatory UNKNOWN PROVIDER Facility:[facility] Start: 01-15-2023 End: 01-17-2023 Patient encounter procedure Ro Heckart [facility] Work Phone: [facility] Start: 07-24-2022 End: 07-25-[address] IRASEMA ANDREWS Facility:[facility] Start: 04-29-2022 Letter encounter [facility] Start: 04-03-2022 End: 04-04-[address] IRASEMA ANDREWS Facility:[facility] Start: 08-29-2021 End: 08-30-2021 Patient encounter procedure Lima Bazan [facility] Work Phone: [facility] Plan of Treatment Date Care Activity Detail Author Start: 10-15-2037 Shingles (RZV) Vacci ne (1 of 2) Shingles (RZV) Vaccine (1 of 2) [facility] Start: 09-22-2029 Tetanus vaccination [facility] Start: 12-22-2023 COVID-19 Vaccine ( season) COVID-19 Vaccine ( season) [facility] Start: 12-22-2023 Influenza vaccination Influenza Vacc ine (#[facility] Start: 12-21-2022 Influenza vaccination Influenza Vacc ine (#1) [facility] Start: 10-15-2022 Lipid panel Cholesterol [facility] Start: 01-20-2022 Influenza vaccination Influenza Vacc ine (#1) [facility] Start: 10-15-2014 HPV Vaccine (optiona l start 27-45 years) HPV Vaccine (optional start 27-45 years) [facility] Start: 09-20-2008 [facility] Start: 10-15-2006 Hepatitis A (HAV) Va ccine (optional start 19+ years) Hepatitis A (HAV) Vaccine (optional start 19+ years) [facility] Start: 10-15-2006 Hepatitis B vaccination Hepati tis B (HBV) Vaccine (1 of 3 - 19+ 3-dose series) [facility] Start: 10-15-2005 Hepatitis C screening Hepatitis C An tibody [facility] Start: 10-15-2002 HIV screening HIV Test [facility] Start: 1987 COVID-19 Vaccine ( formulation) COVID-19 Vaccine ( formulation) [facility] Immunizations Immunization Date Immunization Notes Care Provider Amparo garcia 02-15-2021 influenza, injectabl e, quadrivalent, preservative free Lima Collbran [facility] Work Phone: [facility] 02-15-2021 influenza virus vacc ine, unspecified formulation [facility] 01-27-2020 influenza, injectabl e, quadrivalent, preservative free Lima [facility] Work Phone: [facility] 09-23-2019 tetanus toxoid, redu regina diphtheria toxoid, and acellular pertussis vaccine, adsorbed [facility] Work Phone: [facility] 01-29-2018 influenza, injectabl e, quadrivalent, preservative free Lima [facility] Work Phone: [facility] 02-13-2017 influenza, injectabl e, quadrivalent, contains preservative Lima [facility] Work Phone: [facility] 02-10-2015 influenza, injectabl e, quadrivalent, preservative free [facility] Work Phone: [facility] 03-09-2009 novel influenza-H1N1 -09, preservative-free, injectable [facility] Work Phone: [facility] 02-12-2008 influenza virus vacc ine, whole virus [facility] Work Phone: [facility] 02-19-2006 influenza, seasonal, injectable [facility] Work Phone: [facility] 10-30-2001 measles, mumps and r ubella virus vaccine [facility] Work Phone: [facility] 05-31-1999 diphtheria, tetanus toxoids and acellular pertussis vaccine, unspecified formulation [facility] Work Phone: [facility] Payers Date Payer Category Payer Dental --Stand Alone DENTAL-MEDI CAID [id number] 2008 Medicaid [id number] 2007 Medicare MEDICARE MEDICAR E PART A & B [id number] 2007-Present [address] [place] [address] Medicare [id number] 2007 Medicare FFS MEDICARE [id number] 1987 Unknown [id number] 1987 Unknown [id number] 1987 Unknown [id number] 27 1987 Unknown [id number] 27 1987 Unknown [id number] 1959 Medicaid [id number] 1957 Medicare [id number] Unknown [id number] 93 Social History Date Type Detail Facility Start: 07-22-2020 Tobacco smoking status NHIS Never smoked tobacco [facility] Work Phone: Start: 07-22-2020 Tobacco use and exposure Smokeless tobacco non-user [facility] Start: 1985 [facility] Start: 07-29-2020 Gender identity Not on file [facility] Tobacco smoking status No Smoking Status Entered [facility] Start: 07-29-2020 History of Social function [facility] Start: 02-24-2012 Sex Male (finding) [facility] History of Present illness Narrative 01-15-2023 Ro Chinchilla [facility] - 01/15/2023 1:12 PM EDTRaRo armando [facility] - 01/15/2023 12:00 AM EDT Note Date & Type Note Facility 01-15-2023 History of Presen t illness Narrative ----- Sunday, January 15, 2023 at 2:05:02 PM ----- ----- Provider: [id number] Cecily Xavier -- Clinic: [place] ----- OR EVALUATION Patient presents for evaluation [...] a time slot becomes available. Legal Guardian: [facility] [phone] Nursing Dept [phone] NOTE: Dr. Del Valle did the exam Ro Farnsworth [facility] Next Visit: OR ----- Signed on Monday, January 16, 2023 at 8:42:19 AM ----- ----- Provider: [id number] Soumya Maher DDS -- Clinic: [place] ----- documented in this encounter [facility] History of Present illness Narrative 08-29-2021 Lima Bazan [facility] - 08/29/2021 11:22 AM EDT Note Date & Type Note Facility 08-29-2021 History of Presen t illness Narrative ----- Sunday, August 29, 2021 at 3:36:11 PM ----- ----- Provider: [id number] Soumya Bazan Hygienist -- Clinic: [place] ----- [facility], Pt is ready for tx Pt [...] ----- Provider: Emre Maher DDS -- Clinic: [place] ----- documented in this encounter [facility] Evaluation + Plan note Note Date & Type Note Facility Evaluation + Plan note No data available for this section [facility] Hospital Discharge instructions Note Date & Type Note Facility Hospital Discharge instructions No data available for this section [facility] Progress note Note Date & Type Note Facility Progress note No data available for this section [facility] Summary Purpose Family History No Family [...] and content) DATE CREATED AUTHOR 07/29/2022 [facility] DATE CREATED AUTHOR AUTHOR'S ORGANIZ ATION 01/23/2023 [facility] DATE CREATED AUTHOR AUTHOR'S ORGANIZ ATION 12/25/2023 [facility] Patient Care team informatio n (unrecognized section and content) Personnel Name: IRASEMA ANDREWS DO Address: Address: [address] [place] [address] Personnel Name: IRASEMA ANDREWS DO Address: Address: [address] [place] [address] Personnel Name: IRASEMA ANDREWS DO Address: Address: [address] [place] [address] FOR RECORDS PERTAINING TO PATIENTS WHO ARE [...] BE BASED ON THE PRIMARY CLINICAL RECORDS. [facility] [employer] [facility]. provides no warranty or guarantee of the accuracy or completeness of information in this document.
--- NOTE | 2024-12-11 09:59 | CA_ITS ---
Patient Name: STEFANIE ELLIOTT MR#: [id number] : 1985 Exam Date: 12/11/2024 Ordering Doctor: DR IRASEMA ANDREWS D.O. ECHOCARDIOGRAM REPORT PROCEDURE: CA ECHO DOPPLER COMPLETE INDICATIONS: Abnormal EKG COMPARISON: None. DESCRIPTION: COMPLETE ECHOCARDIOGRAM Real-time transthoracic echocardiography with 2D, M-mode, spectral and color flow Doppler performed. QUALITY: Technical quality was good. LEFT VENTRICLE: Normal chamber size. Borderline left ventricular hypertrophy. LV EF: Global left ventricular systolic function is hyperdynamic,: Visually estimated ejection fraction is 65 to 70%. Calculated left ventricular ejection fraction is 72%. No significant wall motion abnormalities. DIASTOLIC: Normal diastolic function. ATRIAL SEPTUM: Inadequately seen. LEFT ATRIUM: Normal chamber size. RIGHT ATRIUM: Mild dilatation. RIGHT VENTRICLE: Normal chamber size. Normal right ventricular systolic function. TRICUSPID VALVE: Normal mobility and thickness. No stenosis with trivial regurgitation. RVSP could not be calculated due to lack of measurable regurgitation. MITRAL VALVE: Normal mobility and thickness. No evidence of mitral valve stenosis. There is no mitral annular calcification. No mitral regurgitation. AORTIC VALVE: Normal trileaflet appearance. No visible sclerosis. Normal leaflet mobility. No evidence of aortic valve stenosis. No aortic regurgitation. AORTIC ROOT: Normal diameter and appearance. PULMONIC VALVE: Normal thickness and mobility. No stenosis. No regurgitation. PERICARDIUM: Anterior free space; trivial effusion versus fat pad. IVC: Collapses with inspiration. Normal size. CONCLUSION: 1. Global left ventricular systolic function is hyperdynamic; visually estimated ejection fraction is 65 to 70% 2. Normal right ventricular size and systolic function 3. Borderline left ventricular hypertrophy 4. Normal diastolic function 5. Right atrium is mildly dilated 6. No significant valvular abnormalities 7. Anterior free space; trivial effusion versus fat pad Adult Echocardiography Procedure Report Left Ventricle LVEDD (3.7 - 5.6 cm): 5.05 cm LVESD (2.2 - 4.0 cm): 2.96 cm LVIVS thickness (0.6 - 1.2 cm): 1.05 cm LVPW thickness (0.5 - 1.0 cm): 1.05 cm e': 0.13 m/s E - e': 6.07 LVOT Max Gradient: 4.64 mm[Hg] LVOT Area (cm2): 1.08 m/s Peak Velocity (LVOT): 1.08 m/s Mean Velocity (LVOT): 0.72 m/s LVOT Diameter 2.16 cm Left Ventricular Ejection Fraction: 71.58 % Left Atrium LA Volume Index (2D A2C): 24.27 ml/m2 Left Atrium Systolic Dimension: 3.27 cm Mitral Valve MV E to A Ratio: 1.24, 1.45 Mitral Valve A-Wave Peak Velocity: 0.61 m/s Mitral Valve E-Wave Peak Velocity: 0.81 m/s Right Ventricle RV Internal Diastolic Dimension: 3.94 cm Aorta AO Root Diam: 3.51 cm Ascending Ao Diam: 3.13 cm Aortic Valve AoV Area (Peak Ranjith): 3.17 cm2, 3.17 cm2 AoV Area (VTI): 3.48 cm2, 3.58 cm2 Peak Velocity(Antegrade Flow): 1.25 m/s, 1.25 m/s Peak Gradient(Antegrade Flow): 6.21 mm[Hg], 6.21 mm[Hg] Mean Velocity(Antegrade Flow): 0.81 m/s, 0.83 m/s Mean Gradient(Antegrade Flow): 3.08 mm[Hg], 3.22 mm[Hg] Velocity Time Integral: 24.09 cm, 25.55 cm Tricuspid Valve Pulmonic Valve Mean Gradient: 2.95 mm[Hg] Mean Velocity: 0.79 m/s Peak Velocity: 1.15 m/s, 1.34 m/s Peak Gradient: 7.17 mm[Hg], 5.31 mm[Hg] Right Atrium Right Atrium Systolic Pressure: 49.71 ml, 49.71 ml Dictated by: Yuli Alatorre M.D. on 12/11/2024 at 17:10 Approved by: Yuli Alatorre M.D. on 12/11/2024 at 17:14
== END 2024-12-11 09:36 | disposition home or self-care (01) ==
LOC: CARD 09:36
PROVIDERS: PCP Family Medicine; Visit Provider Family Medicine
DX: R94.31 Abnormal electrocardiogram [ECG] [EKG] (principal); I49.9 Cardiac arrhythmia, unspecified
CPT/HCPCS: 93306

== ENCOUNTER 2025-03-03 07:03 | Outpatient (OUT) | payer MEDICARE, MEDICAID, SELFPAY ==
--- OUTSIDE RECORDS SUMMARY | 2024-07-16 04:00 | XMS_ITS ---
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 Gareth Ortega Primary Care Provider [phone] Encounters Encounter Location Date Provider Diagnosis [facility] [address] [place] [address] 07/16/2024 Gareth Ortega Plan Of Treatment No Information Progress Notes * STEFANIE ELLIOTT CDOB: [birth year] (39 yo M)Acc No.[id number]:07/16/2024 Patient:?STEFANIE ELLIOTT :?Gareth Ortega DDSDOB:1985???Age:38 Y???Sex: MaleDate:07/16/2024Phone:[phone]:[id number], [id number] * Electronic signature of Dr. Gareth Ortega , DMD, [id number] on 03/03/2025 at 07:05 AM ESTSign off status: Pending * Provider: Melissa Ortega DDS Date: 0 07/16/2024 Generated for Printing/Faxing/eTransmitting on:?03/03/2025 07:05 AM EST
--- OUTSIDE RECORDS SUMMARY | 2024-08-20 06:00 | XMS_ITS ---
Author Organization [facility] Address [address] [place] [address] Care Team Providers Care Master Hearth Technician Name Role Phone Dr. 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 Gareth Ortega , DMD, [id number] on 03/03/2025 at 07:05 AM ESTSign off status: Pending * Provider: Melissa Ortega DDS Date: 0 08/20/2024 Generated for Printing/Faxing/eTransmitting on:?03/03/2025 07:05 AM EST
--- OUTSIDE RECORDS SUMMARY | 2025-03-03 07:05 | XMS_ITS | Patient Health Record ---
Author Organization [facility] es Address [address] [place] [address] Care Team Providers Care Security Nurse Name Role Phone Dr. Gareth Ortega Primary Care Provider Kamaljit Bourne Unavailable [phone] Reason For Referral No Information Encounters Encounter Location Date Provider Diagnosis [facility] [address] [place] [address] 09/18/2024 Kamaljit Bourne [facility] [place] [address]/29/2025jolie Bourne Dental caries on pit and fissure surface penetrating into dentin K02.52 and Encounter for dental examination and cleaning with abnormal findings Z01.21 Assessments Encounter Date Diagnosis (ICD Code) Assessment Notes Treatment Notes Treatment Clinical Notes Section Notes 09/17/2024 Dental caries on pit and fissure surface penetrating into dentin (ICD-10 - K02.52) 09/17/2024Encounter for dental examination and cleaning with abnormal findings (ICD-10 - Z01.21) Plan Of Treatment No Information Insurance Providers Payer Name Payer Address Payer Phone Subscriber Number Group Number Insured Name Patient Relationship to Insured Coverage Start Date Coverage End Date DENTAL MEDICAID [facility] [address] [place] [phone] [id number] STEFANIE ELLIOTTSelf - patient is the [id number] 2024
--- OUTSIDE RECORDS SUMMARY | 2025-03-03 07:06 | XMS_ITS | Patient Health Record ---
Author Organization [facility] Address [address] [place] [address] Care Team Providers Care Lead Generator Name Role Phone Von Alaniz Primary Care Provider Reason For Referral No Information Problems Problem Type SNOMED Code ICD Code Onset Dates Problem Status W/U Status Risk Notes Problem Hyperlipidemia (12792597) Hyperlipidemia, unspecified (E78.5) ActiveconfirmedProblemDysphagia (66880311)Dysphagia, unspecified (R13.10)Active confirmedProblemAutism (12033863)Autism (F84.0)ActiveconfirmedProblemPure hypercholesterolemia (895663342)Pure hypercholesterolemia (E78.00)Active confirmedProblemSevere intellectual disability (80103976)Severe intellectual disability (F72)Activeconfirmed Plan Of Treatment No Information Insurance Providers Payer Name Payer Address Payer Phone Subscriber Number Group Number Insured Name Patient Relationship to Insured Coverage Start Date Coverage End Date MEDICARE [place] [address] [place] [address] [id number] Froilan Latham - patient is the [id number] 2021MEDICAID [facility] [place] [address] [place], [place] [id number] Froilan Latham - patient is the [id number] 2021
--- OUTSIDE RECORDS SUMMARY | 2025-03-03 07:06 | XMS_ITS | CCD ---
Author Organization [facility] Care Team Providers Care Data Integrity Specialist Name Role Phone Unavailable Primary Care Provider Unavailabl e ANDREWS, DR IRASEMA Linder Admitting Unavailable ANDREWS, DR IRASEMA Linder Consulting Unavailable ANDREWS, DR IRASEMA Linder Attending Unavailable ANDREWS, DR IRASEMA Linder Attending Unavailable ANDREWS, DR IRASEMA Linder Admitting Unavailable ANDREWS, DR IRASEMA Linder Consulting Unavailable Unavailable Primary Care Provider Unavailabl e PROVIDER, UNKNOWN Attending Unavailable PROVIDER, UNKNOWN Admitting Unavailable ANDREWS, IRASEMA Primary Care Physician IRASEMA ANDREWS Referring Unavailable ANDREWS, IRASEMA Admitting Unavailable ANDREWS, IRASEMA Attending Unavailable ANDREWS, IRASEMA Admitting Unavailable ANDREWS, IRASEMA Attending Unavailable ANDREWS, IRASEMA Admitting Unavailable ANDREWS, IRASEMA Attending Unavailable Allergies Allergy ClassificationReported Allergen(s)Allergy TypeDate of OnsetReaction(s) Facility (5 sources)Ketamine; Translations: [KETAMINE]Drug Fiwmgto39-58-8404Mqaq [facility] Work Phone: (5 sources)[place]; Translations: [ANIMALS]Propensity to adverse reactions to vofwouzwj92-25-8464ArbjnWfzjvn (5 sources)Pollen; Translations: [POLLEN EXTRACT]Propensity to adverse reactions to uqmq26-60-5318ShkxnRywgsj (5 sources)redtop grass pollen extract; Translations: [GRAMINEAE POLLENS]Drug Pulfavr34-35-3982MvqapRxwqia Medications Current Medications MedicationDrug Class(es)DatesSig (Normalized)Sig (Original)acetaminophen 325 mg oral capsule (4 sources)Start: 91-55-6328ckho 2 tablets by mouth every four hours as needed Acetaminophen 325 MG CAPS Take 2 Tablets by mouth every 4 hours as needed. 07/22/2020 ActivecloNIDine hydrochloride 0.2 mg oral tablet (4 sources)Central alpha-2 Adrenergic Agonisttake 1 tablet by mouth three times dailycloNIDine (CATAPRES) 0.2 MG tablet Take 0.2 mg by mouth 3 times daily. Activedocosahexaenoic acid 120 mg / eicosapentaenoic acid 180 mg oral capsule (4 sources)Start: 64-08-0747Dhkbz-3 1000 MG CAPS Take by mouth 2 times daily. 07/22/2020 Activedocusate sodium 100 mg oral capsule (4 sources)take 1 capsule by mouth twice dailydocusate sodium (COLACE) 100 MG capsule Take 100 mg by mouth 2 times daily. Tejqcj09 hr guaiFENesin 600 mg extended release oral tablet (4 sources)Start: 83-32-8462icwu 1 tablet by mouth twice daily as needed guaifenesin (Mucinex) 600 MG SR tablet Take 1 Tablet by mouth 2 times daily as needed. 60 Tablet 07/22/2020 Ihryvm07 hr guanFACINE 4 mg extended release oral tablet (4 sources)Central alpha-2 Adrenergic Agonisttake 1 tablet by mouth once daily in the morningGuanFACINE HCl (TENEX) 4 MG er tablet Take 1 Tablet by mouth every morning. Activeloratadine 10 mg oral tablet (4 sources)Start: 40-28-9544dozy 1 tablet by mouth once daily as needed loratadine (CLARITIN) 10 MG tablet Take 1 Tablet by mouth daily as needed. 07/22/2020 Activemetoprolol tartrate 25 mg oral tablet (4 sources)beta-Adrenergic Blockertake 1 tablet by mouth three times daily metoprolol (LOPRESSOR) 25 MG tablet Take 1 Tablet by mouth 3 times daily. Active minocycline 100 mg oral capsule (4 sources)Tetracycline-class Drugtake 1 capsule by mouth twice dailyminocycline (MINOCIN) 100 MG capsule Take 100 mg by mouth 2 times daily. ActiveMultiple Vitamin (MULTI-VITAMINS) tablet (4 sources)Multiple Vitamin (MULTI-VITAMINS) tablet Take by mouth. Active Multiple Vitamin (MULTI-VITAMINS) tablet Take by mouth. 0 ActiveOLANZapine 10 mg oral tablet (8 sources)Atypical Antipsychotictake 1 tablet by mouth at bedtimeOLANZapine (ZyPREXA) 20 MG tablet Take 20 mg by mouth at bedtime. Activetake 1 tablet by mouth at bedtimeOLANZapine (ZyPREXA) 10 MG tablet Take 10 mg by mouth at bedtime. Activeondansetron 4 mg oral tablet (4 sources)Serotonin-3 Receptor Antagonisttake 1 tablet by mouth every six hours as neededondansetron (ZOFRAN) 4 MG tablet Take 4 mg by mouth every 6 hours as needed. ActiveQUEtiapine 200 mg oral tablet (4 sources)Atypical AntipsychoticStart: 11-80-5643yjpj 1 tablet by mouth twice dailyQUEtiapine (SEROQUEL) 200 MG tablet Take 1 Tablet by mouth 2 times daily. 60 Tablet 07/22/2020 Activesimvastatin 20 mg oral tablet (4 sources)HMG-CoA Reductase Inhibitortake 1 tablet by mouth once daily in the eveningsimvastatin (ZOCOR) 20 MG tablet Take 20 mg by mouth every evening. Activetretinoin 1 mg/ml topical cream (4 sources)Retinoidtretinoin (RETIN-A) 0.1 % cream Apply topically at bedtime. Apply daily at bedtime Iturdd37 hr divalproex sodium 500 mg extended release oral tablet (4 sources)Mood Stabilizer, Anti-epileptic Agenttake 1 tablet by mouth three times dailydivalproex ER (DEPAKOTE ER) 500 MG ER tablet Take 1 Tablet by mouth 3 times daily. Activewitch lyn 200 mg/ml medicated pad (4 sources)Witch Lyn (TUCKS) 50 % PADS Apply externally as needed. Active Problems Active Problems Problem ClassificationProblemDateDocumented DateEpisodic/ChronicAnxiety disorders (3 sources)Obsessive-compulsive czpmfujs90-60-4904SwkeholGztsfdhvrvcfe disorders (7 sources)Intellectual disability; Translations: [Unspecified intellectual disabilities]Onset: 054215-02-7403ZwdhctuXdqhavpie of lipid metabolism (1 source)Hyperlipidemia, unspecified; Translations: [HYPERLIPIDEMIA UNSPECIFIED]Onset: 36-85-2905KnckgtkNjxtdxfvw usually diagnosed in infancy, childhood, or adolescence (3 sources)Autistic vofzaxeh17-45-7080CrwszwhWial disorders (1 source)Bipolar disorder, unspecified; Translations: [BIPOLAR DISORDER UNSPECIFIED]Onset: 66-13-4560JpyoatjIqmwr aftercare (4 sources)Other chcf (current) drug therapy; Translations: [OTH 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 ASSEMBLER CURRENT DRUG THERAPY]Onset: 21-62-4911Avvxhxht Past or Other Problems Problem ClassificationProblemDateDocumented DateEpisodic/ChronicDisorders of teeth and jaw (4 sources)Dental caries; Translations: [Dental caries, unspecified]Onset: 198722-09-2918Fuymycvw Results Test NameValueInterpretationReference RangeFacilityXR Adult Swallowing Function w/ Videoon 77-11-7042SO Adult Swallowing Function w/ VideoExam Date/Time: 12/17/2023 09:56 EDT Reason for Exam: [...] Augusto Car DO Transcribed by: FADIA Technologist: AUROAR Technical Comments Radiation Dose: Ka,r in mGy = 4.70 DAP = 107.94NormalOhio[facility] w/Indiceson 07-17-2023 Erythrocyte distribution width (RBC) [Ratio]13.1 %Heuvfx98.9-14.2[facility] Western MarylandComment on above:Performed By: #### [id number], 7351469, 1100100, 06663582, 9188327 #### Raghavendra [facility] [address] [place] [address] 88978Wreavsizqe (Bld) [Volume fraction]43.8 %Sarzer45.7-49.0[facility] HospitalComment on above:Performed By: #### 8296496, 4968627, 9461132, 15138903, 1343232 #### Raghavendra [facility] [address], [place] [address]Cdrzaasgkb (Bld) [Mass/Vol]14.5 g/bULtsnbh35.5-17.5FCleveland Clinic FoundationComment on above:Performed By: #### 3171917, 0218413, 5526446, 79326092, 2626663 #### [facility] [address] [place] [address] 29091IHL (RBC) [Entitic mass]30.5 ezLhvios49.0-34.0[facility] HospitalComment on above:Performed By: #### 9688636, 5998535, 7427782, 21265128, 4884247 #### [facility] [address] [place] [address] 76309DSGO (RBC) [Mass/Vol]33.2 g/uXUatfep12.4-36.0[facility] HospitalComment on above:Performed By: #### 3352240, 3062364, 7062851, 90176137, 1060946 #### [facility] [address] [place] [address] 95131MEH (RBC) [Entitic vol]92.0 pMGsxqra02.0-100.0[facility] HospitalComment on above:Performed By: #### 5129420, 0633643, 4669067, 47391423, 6481313 #### [facility] [address] [place] [address] 29742Neodpgfa mean volume (Bld) [Entitic vol]10.6 fLNormal6.4-10.8 [facility] HospitalComment on above:Performed By: #### 1831583, 1432100, 3869740, 48675902, 7251248 #### [facility] [address] [place] [address] 86540Mspeigenh (Bld) [#/Vol]147.0 E9/UTyc930.0-500.0[facility] HospitalComment on above:Performed By: #### 9501468, 2151536, 1754976, 67431114, 0692653 #### [facility] [address], [place] [address]PEY (Bld) [#/Vol]4.8 E12/LNormal4.3-5.9[facility] HospitalComment on above:Performed By: #### 0241356, 4862670, 9173525, 16351103, 5991265 #### [facility] [address], [place] [address]XQZ size Nom (Bld)NORMALInvalid Interpretation CodeAvita Health System Ontario HospitalComment on above:Performed By: #### 3357454, 8389725, 5716905, 24590149, 4131341 #### [facility] [address], [place] [address]BBU corrected for nucl RBC Auto (Bld) [#/Vol]5.1 E9/LNormal 4.0-11.0[facility] HospitalComment on above:Performed By: #### 4490772, 0598881, 8713570, 42576525, 6572723 #### [facility] [address], [place] [address]RIHRHPEBJWmwzsnc By: SYSTEM SYSTEM on 51-83-1557Uyfhsrj [Mass/Vol]4.3 g/dLNormal3.3 - 5.0 gm/dLRemisol ChemAlbumin/Globulin [Mass ratio] 1.9 {ratio}Normal1.1 - 2.2Remisol ChemALP [Catalytic activity/Vol]44 [iU]/d Bzpqsb97 - 98 Int._Unit/LRemisol ChemALT No additional P-5'-P [Catalytic activity/Vol]6 [iU]/dNormal6 - 46 Int._Unit/LRemisol ChemAnion gap [Moles/Vol]10 mmol/LNormal6 - 16 mEq/LRemisol ChemAST [Catalytic activity/Vol]16 [iU]/dNormal 5 - 43 Int._Unit/LRemisol ChemBilirubin [Mass/Vol]0.3 mg/dLNormal0.0 - 1.1 mg/dL Remisol ChemCalcium [Mass/Vol]9.5 mg/dLNormal8.9 - 11.1 mg/dLRemisol Chem Chloride [Moles/Vol]108 mmol/SWhlpmz073 - 111 mmol/LRemisol ChemCholesterol [Mass/Vol]137 mg/fJMkpxbv651 - 200 mg/dLRemisol ChemCholesterol in HDL [Mass/Vol]33 mg/dLInvalid Interpretation CodeRemisol ChemComment on above:Result Comment: '>= 60 LOW RISK' '<= 40 HIGH RISK'Cholesterol in LDL [Mass/Vol]87 mg/dLNormal<=129mg/dLRemisol ChemCholesterol in VLDL [Mass/Vol]21 mg/dLNormal7 - 40 mg/dLRemisol ChemCO2 [Moles/Vol]28 mmol/XIozxaa93 - 31 mmol/LRemisol ChemCreatinine [Mass/Vol]1.0 mg/dLNormal0.5 - 1.3 mg/dLRemisol SxnngSBI001 mL/min/1.73 t9Gsqoib >=59mL/min/1.73 a8Qgccqxb ChemGlobulin (S) [Mass/Vol]2.3 g/dLNormal1.4 - 4.0 gm/dLRemisol ChemGlucose [Mass/Vol]81 mg/oYOuiyyt46 - 199 mg/dLRemisol Chem Potassium [Moles/Vol]4.4 mmol/LNormal3.5 - 5.3 mmol/LRemisol ChemProtein [Mass/Vol]6.6 g/dLNormal6.0 - 7.8 gm/dLRemisol ChemSodium [Moles/Vol]142 mmol/L Xnzuta563 - 145 mmol/LRemisol ChemTriglyceride [Mass/Vol]106 mg/dLNormal <=149mg/dLRemisol ChemUrea nitrogen [Mass/Vol]16 mg/dLNormal5 - 21 mg/dLRemisol ChemUrea nitrogen/Creatinine [Mass ratio]16 mg/agDcakrq16 - 20Remisol ChemValpro Acid Zan740 microgram/mLInvalid Interpretation Code50 - 99 mcg/mLRemisol Chem Comment on above:Result Comment: Critical Result S_VPA:115 Called to and read back by: SAMIA Fontanez at: 07/17/2023 20:33:29 by:[id number] Critical Result Verified by Repeat Analysis Called Dr. Andrewss office, Samia is giving result to Dr. Corbin Andrews called back and took critical as well.CMPon 43-89-5162Ylukybm [Mass/Vol]4.3 g/dLNormal3.3-5.0[facility] HospitalComment on above: Performed By: #### 2703140, 3302389, 1525626, 61443016, 4430462 #### [facility] [address], [place] [address]Ukxopwk/Globulin (S) [Mass conc ratio]1.5Fxxzyw3.1-2.2FCleveland Clinic FoundationComment on above:Performed By: #### 3631345, 2371646, 8047829, 03525211, 2943278 #### [facility] [address] [place] [address] 48992XIS [Catalytic activity/Vol]44 Int._Unit/SMbtwgt64-90TihucnAvita Health System Ontario HospitalComment on above:Performed By: #### 4338212, 7140612, 3298925, 62344124, 3892196 #### [facility] [address] [place] [address]YKY No additional P-5'-P [Catalytic activity/Vol]6 Int._Unit/L Normal6-46[facility] HospitalComment on above:Performed By: #### 6535387, 8265453, 1117759, 29558084, 3006737 #### [facility] [address], [place] [address]Xqkri gap [Moles/Vol]10 mmol/LNormal6-16[facility] HospitalComment on above:Performed By: #### 7700914, 1028194, 8701536, 59615110, 4208775 #### [facility] [address] [place] [address]YCZ [Catalytic activity/Vol]16 Int._Unit/LNormal5-43[facility] HospitalComment on above:Performed By: #### 2267219, 3103773, 3569664, 99771377, 1422658 #### [facility] [address], [place] [address]Iqcyuvprg [Mass/Vol]0.3 mg/dLNormal0.0-1.1FCleveland Clinic FoundationComment on above:Performed By: #### 2206056, 8478154, 6690411, 66083060, 7422432 #### [facility] [address], [place] [address]Cditpoi [Mass/Vol]9.5 mg/dLNormal8.9-11.1FCleveland Clinic FoundationComment on above:Performed By: #### 8061283, 0534962, 5519741, 20013119, 9710822 #### [facility] [address], [place] [address]Jbninvyq [Moles/Vol]108 mmol/IGgqjmr107-311KwsbihAvita Health System Ontario HospitalComment on above:Performed By: #### 2260998, 7662402, 4883572, 53462065, 5447430 #### [facility] [address], [place] [address]XW4 [Moles/Vol]28 mmol/XVpmawy32-43TfkqokAvita Health System Ontario Hospital Comment on above:Performed By: #### 0629829, 2123169, 6834749, 73645035, 7708787 #### [facility] [address], [place] [address]Iarkpyuinz [Mass/Vol]1.0 mg/dLNormal0.5-1.3FCleveland Clinic FoundationComment on above:Performed By: #### 4166390, 6357042, 1342880, 39216235, 3620379 #### [facility] [address], [place] [address]Yshihutx (S) [Mass/Vol]2.3 g/dLNormal1.4-4.0[facility] HospitalComment on above:Performed By: #### 4682112, 4129235, 1931686, 70611982, 1656080 #### [facility] [address] [place] [address]Vorzcpu [Mass/Vol]81 mg/eRLaeswy12-230KvjjskAvita Health System Ontario HospitalComment on above:Performed By: #### 5512151, 3031121, 7724215, 50156589, 2669189 #### [facility] [address] [place] [address]Tpooidyyh [Moles/Vol]4.4 mmol/LNormal3.5-5.3FC[facility] Clinic FoundationComment on above:Performed By: #### 9278848, 1709288, 5199920, 46755160, 3155345 #### [facility] [address] [place] [address]Jtuxhfu [Mass/Vol]6.6 g/dLNormal6.0-7.8[facility] HospitalComment on above:Performed By: #### 1686289, 4520016, 6580482, 65523820, 7016969 #### [facility] [address] [place] [address]Qdypxx [Moles/Vol]142 mmol/NXbohku490-373LgilkcAvita Health System Ontario HospitalComment on above:Performed By: #### 0883892, 3431771, 1267642, 78247294, 4003930 #### [facility] [address] [place] [address]Tqgb nitrogen [Mass/Vol]16 mg/dLNormal5-21[facility] HospitalComment on above:Performed By: #### 5743586, 0417709, 6680427, 82391995, 2303882 #### [facility] [address] [place] [address]Zkir nitrogen/Creatinine [Mass ratio]16 No MjwlzLtrdnp75-31 [facility] HospitalComment on above:Performed By: #### 0177866, 5048462, 0652522, 61098664, 4739914 #### [facility]endra [facility] [address], [place] [address]ZVUAZRNCVXYitxokg By: SYSTEM SYSTEM on 69-55-4484Qcrcgeuczqq distribution width (RBC) [Ratio]13.1 %Ligwgd20.9 - 14.2 %Remisol HemeHematocrit (Bld) [Volume fraction]43.8 %Wnepgs39.7 - 49.0 %Remisol HemeHemoglobin (Bld) [Mass/Vol]14.5 g/iCPgowty61.5 - 17.5 gm/dLRemisol HemeMCH (RBC) [Entitic mass] 30.5 ffLievqj34.0 - 34.0 pgRemisol HemeMCHC (RBC) [Mass/Vol]33.2 g/aWBbmwig34.4 - 36.0 gm/dLRemisol HemeMCV (RBC) [Entitic vol]92.0 sYFyhrxr70.0 - 100.0 fL Remisol HemePlatelet mean volume (Bld) [Entitic vol]10.6 fLNormal6.4 - 10.8 fL Remisol HemePlatelets (Bld) [#/Vol]147.0 E9/RThc964.0 - 500.0 E9/LRemisol Heme RBC (Bld) [#/Vol]4.8 E12/LNormal4.3 - 5.9 E12/LRemisol HemeRBC size Nom (Bld) NORMAL *NA* (07/17/23 7:35 AM)Invalid Interpretation CodeRemisol HemeWBC corrected for nucl RBC Auto (Bld) [#/Vol]5.1 E9/LNormal4.0 - 11.0 E9/LRemisol HemeLipid Panelon 03-34-4798Gkitpiqtpnk [Mass/Vol]137 mg/oWChkiwb386-236WoyygzAvita Health System Ontario HospitalComment on above:Performed By: #### 6392225, 5524424, 1529730, 11870866, 1469784 #### [facility]endra [facility] [address], [place] [address]Sxedabbitqb in HDL [Mass/Vol]33 mg/dLInvalid Interpretation [facility] Health AdministrationComment on above:Result Comment: '>= 60 LOW RISK' '<= 40 HIGH RISK'Performed By: #### 7081675, 7089073, 3140607, 15614632, 1678496 #### [facility] [address], [place] [address]Ttbgslgkqcz in LDL [Mass/Vol]87 mg/dLNormal<=129Av[facility] Ontario HospitalComment on above:Performed By: #### 1876045, 3608943, 4273347, 66622654, 1623852 #### [facility] [address], [place] [address]Lxaaecjmebf in VLDL [Mass/Vol]21 mg/dLNormal7-40[facility] HospitalComment on above:Performed By: #### 4667038, 1196549, 6319851, 80142122, 4033508 #### [facility] [address], [place] [address]Bjsobkfvjhqu [Mass/Vol]106 mg/dLNormal<=149[facility] HospitalComment on above:Performed By: #### 9439672, 6373980, 4280080, 85225032, 5004413 #### [facility] [address], [place] [address]Xsadxlrxs Orderon 99-79-9380Unecirlqt Order [id number]#1.00TIFFNormalAvita Health System Ontario HospitalValproic Acidon 86-40-8646Lvxiao Acid Foo301 microgram/mHSugognbu71-54 [facility] HospitalComment on above:Result Comment: Critical Result S_VPA:115 Called to and read back by: SAMIA Fontanez at: 07/17/2023 20:33:29 by:[id number] Critical Result Verified by Repeat Analysis Called Dr. Andrewss office, Samia is giving result to Dr. Corbin Andrews called back and took critical as well.Performed By: #### 0524016, 1552105, 7658836, 29136326, 0994021 #### [facility] [address], [place] [address]hZEKsu 10-86-9404oWKE187 mL/min/1.73 b1Onzejk>=59Av[facility] Ontario HospitalComment on above:Order Comment: Order added by Discern Expert. Performed By: #### 7993627, 4147410, 4154062, 49764434, 2043667 #### [facility] [address], [place] [address]YBZSUJOSNUeqfvrv By: SYSTEM SYSTEM on 01-53-7700Zrcylgpwz [Moles/Vol]96 microgram/hYUcbdec90 - 99 mcg/mLFTMC RemisolPhysician Orderon 26-67-7371Knrxyneei [id number]#1.00TIFF NormalAvita Health System Ontario HospitalValproic Acidon 89-52-8488Mmvsalpme [Moles/Vol] 96 microgram/fINnlaht32-83UfqvkyAvita Health System Ontario HospitalComment on above:Performed By: #### 1180542 #### [facility] [address], [place] [address]Jjqfbjdq Noteson 33-93-4145Ecooqrlihzbdc Authentication Interface Message TextSumner Regional Medical CenterEarth Class Mail SystemTranscription Authentication Interface Message Text----- Sunday, January 15, 2023 at 2:05:02 PM ----- ----- Provider: Tyler Chinchilla Hygienist -- Clinic: [facility] [place] ----- OR EVALUATION Patient presents for evaluation [...] a time slot becomes available. Legal Guardian: [facility] [phone] Nursing Dept [phone] NOTE: Dr. Del Valle did the exam Ro [place] [facility] Next Visit: OR ----- Signed on Monday, January 16, 2023 at 8:42:19 AM ----- ----- Provider: Emre Maher DDS -- Clinic: [place] -----NormalThe [facility] AUTO DIFFon 20-11-5935TXCH #0.0 103/ulNormal0.0-0.1The [facility] HospitalComment on above:Performed By: #### CBC #### [facility] [address] [place] [address] Dr. Theresa AzevedoBasophils/100 WBC (Bld)0.7 %Normal0.2-2.0The [facility] Comment on above:Performed By: #### CBC #### [facility] [address] [place] [address] Dr. Theresa Archer #0.2 103/ulNormal0.0-0.7The [facility] HospitalComment on above: Performed By: #### CBC #### [facility] [address] [address] [address] Theresa Suhosinophils/100 WBC (Bld)3.2 %Normal0.9-7.0The [facility] Comment on above:Performed By: #### CBC #### [facility] [address] [place] [address] Dr. Theresa Suhrythrocyte distribution width (RBC) [Ratio]12.1 %Ftryok98.0-15.0 The [facility] HospitalComment on above:Performed By: #### CBC #### [facility] [address] [place] [address] Dr. Theresa AzevedoHematocrit (Bld) [Volume fraction]44.9 %Jypeoy20.0-54.0The [facility] HospitalComment on above:Performed By: #### CBC #### [facility] [address] [place] [address] Dr. Theresa AzevedoHemoglobin (Bld) [Mass/Vol]14.8 g/rEAfzbpt75.0-18.0The [facility] HospitalComment on above:Performed By: #### CBC #### [facility] [address] [address] [address] Theresa Auguste #0.06 10e3/ulCritically high0.00-0.03The [facility] Comment on above:Performed By: #### CBC #### [facility] [address] [address] [address] Theresa Auguste %1.1 %Critically high0.0-0.5The [facility] HospitalComment on above:Performed By: #### CBC #### [facility] [address] [place] [address] Dr. Theresa Millan #1.9 103/ulNormal1.2-3.8The [facility] HospitalComment on above:Performed By: #### CBC #### [facility] [address] [place] [address] Dr. Theresa Britohocytes/100 WBC (Bld)33.9 %Oiorjp27.5-60.0The [facility] HospitalComment on above:Performed By: #### CBC #### [facility] [address] [place] [address] Dr. Theresa MartinezPREMIER [facility]ALTH [facility] DIFF REQNONormalThe [facility]. [facility] Memorial HospitalComment on above: Performed By: #### CBC #### [facility] [address] [address] [address] Theresa Pantoja (RBC) [Entitic mass]30.1 kaLgerze30.9-34.0The [facility] HospitalComment on above:Performed By: #### CBC #### [facility] [address] [place] [address] Dr. Theresa Pantoja (RBC) [Mass/Vol]33.0 g/oNZfqjhm47.9-35.2The [facility] HospitalComment on above:Performed By: #### CBC #### [facility] [address] [place] [address] Dr. Theresa Pantoja (RBC) [Entitic vol]91.3 kODbdflh46.0-94.0The [facility] HospitalComment on above:Performed By: #### CBC #### [facility] [address] [place] [address] Dr. Theresa Graham #0.4 103/ulNormal0.3-0.8The [facility] HospitalComment on above:Performed By: #### CBC #### [facility] [address] [place] [address] Dr. Theresa Tejadaocytes/100 WBC (Bld)6.9 %Normal1.7-12.0The [facility] Comment on above:Performed By: #### CBC #### [facility] [address] [place] [address] Dr. Theresa Jacobs #3.1 103/ulNormal1.4-6.5The [facility] HospitalComment on above:Performed By: #### CBC #### [facility] [address] [place] [address] Dr. Theresa Cloudutrophils/100 WBC (Bld)54.2 %Fewcza16.0-75.0The [facility] HospitalComment on above:Performed By: #### CBC #### [facility] [address] [place] [address] Dr. Theresa Colmenares mean volume (Bld) [Entitic vol]10.5 fLNormal9.5-13.5The [facility] HospitalComment on above:Performed By: #### CBC #### [facility] Laboratory [address] [place] [address] Dr. Theresa FloydT221 103/nwYpqzjw364-510Ujh [facility] HospitalComment on above: Performed By: #### CBC #### [facility] Laboratory [address] [place] [address] Dr. Theresa AzevedoRBC4.92 106/ulNormal4.70-6.10The [facility] HospitalComment on above:Performed By: #### CBC #### [facility] Laboratory [address] [place] [address] Dr. Theresa AzevedoWBC5.7 103/ulNormal4.0-11.0The [facility] HospitalComment on above: Performed By: #### CBC #### [facility] Laboratory [address] [address] [address] Theresa SmithID PROFILEon 08-00-9630MHOM-HDL RATIO NORMSCleveland Clinic Avon HospitalComascension macomb on above:Result Comment: 3.3 - 4.4 LOW RISK 4.4 - 7.1 AVERAGE RISK 7.1 - 11.0 MODERATE RISK >11.0 HIGH RISKPerformed By: #### LIPID, CMP #### [facility] [address] [address] [address] Theresa AzevedoCholesterol [Mass/Vol]169 mg/dLNormal<=200[facility] Comment on above:Performed By: #### LIPID, CMP #### [facility] [address] [address] [address] Theresa AzevedoCholesterol in HDL [Mass/Vol]28 mg/dLCritically rhg16-80Etf [facility] HospitalComascension macomb on above:Performed By: #### LIPID, CMP #### [facility] Laboratory [address] [address] [address] Theresa AzevedoCholesterol in LDL [Mass/Vol]118.8 mg/dLSelect Medical Specialty Hospital - CantonComascension macomb on above:Performed By: #### LIPID, CMP #### [facility] [address] [address] [address] Theresa AzevedoCholestertanvi.total/Cholesterol in HDL [Mass ratio]6.0 {ratio} NormalFayette County Memorial Hospital on above:Performed By: #### LIPID, CMP #### [facility] [address] [address] [address] Theresa AzevedoHDL NORMAL> or = 60 mg/dl - LOW CARDIOVASCULAR RISK <40 mg/dl - HIGH CARDIOVASCULAR RISKChildren's Hospital for Rehabilitation on above:Performed By: #### LIPID, CMP #### [facility] [address] [address] [address] Theresa AzevedoLDL CALC NORMALSEE [facility] So[facility] Medical CenterComascension macomb on above:Result Comment: <100 mg/dl OPTIMAL 100 - 129 mg/dl NEAR OR ABOVE OPTIMAL 130 - 159 mg/dl BORDERLINE HIGH 160 - 189 mg/dl HIGH >190 mg/dl VERY HIGH Performed By: #### LIPID, CMP #### [facility] [address] [place] [address] Dr. Theresa AzevedoTriglyceride [Mass/Vol]111 mg/dLNormal<=150The [facility] Comment on above:Performed By: #### LIPID, CMP #### [facility] [address] [place] [address] Dr. Theresa AzevedoVLDL CALC22.2 mg/dLNormalThe [facility] HospitalComment on above: Performed By: #### LIPID, CMP #### [facility] Laboratory [address] [place] [address] Dr. Theresa Aldrich 14(COMP METB)on 85-51-6285Bzbierv [Mass/Vol]3.5 g/dLNormal 3.4-5.0The [facility] HospitalComment on above:Performed By: #### LIPID, CMP #### [facility] Laboratory [address] [place] [address] Dr. Theresa AzevedoAlbumin/Globulin [Mass ratio]0.9 {ratio}NormalThe [facility] HospitalComment on above:Performed By: #### LIPID, CMP #### [facility] Laboratory [address] [place] [address] Dr. Theresa Pacheco [Catalytic activity/Vol]55 U/WKbkgci33-951Fpw [facility] HospitalComment on above:Performed By: #### LIPID, CMP #### [facility] Laboratory [address] [place] [address] Dr. Theresa Medina [Catalytic activity/Vol]16 U/XMlwivu91-01Lzi [facility] HospitalComment on above:Performed By: #### LIPID, CMP #### [facility] Laboratory [address] [place] [address] Dr. Theresa Plascencia gap [Moles/Vol]10.9 mmol/LNormalThe [facility] Comment on above:Performed By: #### LIPID, CMP #### [facility] Laboratory [address] [address] [address] Theresa AzevedoAST [Catalytic activity/Vol]12 U/LCritically njy58-28Xaf [facility] HospitalComment on above:Performed By: #### LIPID, CMP #### [facility] [address] [address] [address] Theresa AzevedoBilirubin [Mass/Vol]0.4 mg/dLNormal0.2-1.0The [facility] Comment on above:Performed By: #### LIPID, CMP #### [facility] [address] [address] [address] Theresa AzevedoCalcium [Mass/Vol]9.5 mg/dLNormal8.5-10.1The [facility] Comment on above:Performed By: #### LIPID, CMP #### [facility] [address] [address] [address] Theresa AzevedoChloride [Moles/Vol]106 mmol/KOgifeg87-626Vme [facility] Comment on above:Performed By: #### LIPID, CMP #### [facility] Laboratory [address] [place] [address] Dr. Theresa AzevedoCO2 [Moles/Vol]31.1 mmol/PBqwuwg10.0-32.0The [facility] Comment on above:Performed By: #### LIPID, CMP #### [facility] [address] [place] [address] Dr. Theresa AzevedoCreatinine [Mass/Vol]0.79 mg/dLNormal0.70-1.30The [facility] HospitalComment on above:Performed By: #### LIPID, CMP #### [facility] [address] [place] [address] Dr. Theresa SuhGFR-AF VIETNAMESE>60Normal>=60The [facility] HospitalComment on above:Performed By: #### LIPID, CMP #### [facility] [address] [place] [address] Dr. Theresa SuhGFR-NON AF VIETNAMESE>60Normal>=60The [facility] HospitalComment on above:Performed By: #### LIPID, CMP #### [facility] [address] [address] [address] Theresa AzevedoGlobulin (S) [Mass/Vol]4.1 g/dLNormalThMercy Health Clermont HospitalComment on above:Performed By: #### LIPID, CMP #### [facility] [address] [address] [address] Theresa AzevedoGlucose [Mass/Vol]90 mg/pLIhzvui15-110EoiMercy Health [facility] Hospital Comment on above:Performed By: #### LIPID, CMP #### [facility] [address] [address] [address] Theresa AzevedoPotassium [Moles/Vol]4.0 mmol/LNormal3.5-5.1The [facility] Comment on above:Performed By: #### LIPID, CMP #### [facility] [address] [address] [address] Theresa AzevedoProtein [Mass/Vol]7.6 g/dLNormal6.4-8.2The [facility] Comment on above:Performed By: #### LIPID, CMP #### [facility] [address] [address] [address] Theresa AzevedoSodium [Moles/Vol]144 mmol/SRkbbju423-968Abi [facility] Comment on above:Performed By: #### LIPID, CMP #### [facility] [address] [address] [address] Theresa AzevedoUrea nitrogen [Mass/Vol]13.0 mg/dLNormal7.0-18.0The [facility] HospitalComment on above:Performed By: #### LIPID, CMP #### [facility] [address] [address] [address] Theresa AzevedoUrea nitrogen/Creatinine [Mass ratio]16.5 mg/mgNoHighland District HospitalComment on above:Performed By: #### LIPID, CMP #### [facility] Laboratory [address] [place] [address] Dr. Theresa LuceroPANIXON/ VALPROIC ACIDon 36-38-3878DNNUBZVD23.6 ug/mlNormal 50.0-100.0The [facility] HospitalComment on above:Performed By: #### VALP #### [facility] [address] [address] [address] Theresa Azevedo Encounters Encounter DateEncounter TypeCare ProviderFacilityStart: 04-18-2024 End: 82-01-4038Ssaiem encounterMetroHealthStart: 12-17-2023 End: 22-67-8962pebypgjftjFHUWZM HERRINGFacility:FTMCStart: 12-17-2023 End: 90-79-9674Ylaexlg encounter procedureDANIEL ANDREWS [facility] Start: 07-17-2023 End: 66-15-7359Joo Drop offDANIEL ANDREWS [facility] Start: 07-17-2023 End: 62-69-1482ayxqoeaohfRMFUJQ HERRINGFacility:FTMCStart: 03-06-2023 End: 67-13-4432ddeedfvemxTHEFNP HERRINGFacility:FTMCStart: 03-06-2023 End: 24-29-7357Lyf Drop offDANIEL ANDREWS [facility] Start: 01-15-2023 End: 19-17-3709smtddblkrrBSLMDHY PROVIDERFacility:METROHealthStart: 01-15-2023 End: 33-77-5185Qjqcxov encounter procedureRo Chinchilla RD Work Phone: [facility] DentistryStart: 07-24-2022 End: 11-46-1807ctuptaqurhXX DANIEL A HERRINGFacility:T5Bjxfg: 87-62-2013Umbyza encounterMetroHealthStart: 04-03-2022 End: 25-54-2574thwtgvnefhJN DANIEL A HERRINGFacility:X7Ynolv: 08-29-2021 End: 09-51-2770Yrmstra encounter procedureLima Bazan [facility] Work Phone: [facility] Plan of Treatment DateCare ActivityDetailAuthorStart: 00-67-2756Ssidmijy (RZV) Vaccine (1 of 2) Shingles (RZV) Vaccine (1 of 2)MetroHealthStart: 07-61-9078Hboskly vaccination MetroHealthStart: 16-41-1663JKYKM-19 Vaccine ( season)COVID-19 Vaccine ( season)MetroHealthStart: 50-90-6070Tpdtgwuak vaccination Influenza Vaccine (#1)MetroHealthStart: 36-62-0206Djlhrtmpm vaccinationInfluenza Vaccine (#1)MetroHealthStart: 29-86-8822Qpdor panelCholesterolMetroHealthStart: 91-22-1860Pkjflcsyi vaccinationInfluenza Vaccine (#1)MetroHealthStart: 78-44-6247LJO Vaccine (optional start 27-45 years)HPV Vaccine (optional start 27-45 years)MetroHealthStart: 83-15-7221Vvgifa wellness visitAnnual Wellness Visit (G0438)MetroHealthStart: 42-92-9291Qerlxucgz A (HAV) Vaccine (optional start 19+ years)Hepatitis A (HAV) Vaccine (optional start 19+ years)[facility] Start: 17-84-0547Lmmdmgyvg B vaccinationHepatitis B (HBV) Vaccine (1 of 3 - 19+ 3-dose series)MetroHealthStart: 66-93-1321Toixxcgzk C screeningHepatitis C AntibodyMetroHealthStart: 80-00-9903CLK screeningHIV TestMetroHealthStart: 98-79-2226ZCJLC-19 Vaccine ( formulation)COVID-19 Vaccine ( formulation)[place] Immunizations Immunization DateImmunizationNotesCare XjdokmorIjkggdwd97-15-1447isileojwy, injectable, quadrivalent, preservative freeLima Bazan [facility] Work Phone: [phone]gMlpikc51-98-8999ngkarmbpb virus vaccine, unspecified uoqedvemcbcCmabeLzqwfs51-03-3535zahhoqnbx, injectable, quadrivalent, preservative freeCentral Park Hospitalrosy [facility] Work Phone: [phone]mIyfpxl43-71-2088eyymtiq toxoid, reduced diphtheria toxoid, and acellular pertussis vaccine, adsorbedCentral Park Hospitalrosy [facility] Work Phone: [phone]xGstmkg19-25-9496wozpetscl, injectable, quadrivalent, preservative freeCentral Park Hospitalrosy [facility] Work Phone: [phone]tFvixbn08-50-5143izstjqlid, injectable, quadrivalent, contains preservativeCentral Park Hospitalrosy [facility] Work Phone: [phone]wTliske32-48-4782xzimgwcrd, injectable, quadrivalent, preservative freeCentral Park Hospitalrosy [facility] Work Phone: [phone]tXugkdx68-89-4683lqlrv witvmogrh-D8W2-60, preservative-free, injectableCentral Park Hospitalrosy [facility] Work Phone: [phone]zTqnwlt37-57-5090bxealpkwq virus vaccine, whole virusMission Hospital Work Phone: [phone]fLralfl48-08-9860unqjzqvfq, seasonal, injectable Lima [facility] Work Phone: [phone]kZzofcf93-38-4193yykdwpc, mumps and rubella virus vaccineMission Hospital Work Phone: [phone]kEomsbn57-58-8105vqhltwnvsz, tetanus toxoids and acellular pertussis vaccine, unspecified formulationMission Hospital Work Phone: [facility] Payers DatePayer CategoryPayerPolicy [id number] --Stand AloneDENTAL-MEDICAID [id number] 2009Medicaid [id number] 2008MedicareMEDICARE MEDICARE PART A & B [id number] 2007-Present [address] [place] [address] [id number] 2008Medicare FFSMEDICARE [id number] .[id number] .[id number] .[id number] .1.289147.3.57[id number] .1.411346.3.579.2.727 [id number] 1960Medicare [id number] Social History DateTypeDetailFacilityStart: 17-97-2848Wocxbye smoking status NHISNever smoked tobaccoMetroHealth Work Phone: Start: 85-89-7021Nhmulkx use and exposureSmokeless tobacco non-userMetroHealthStart: 70-94-8201Yio Assigned At BirthNot on file MetroHealthStart: 79-70-2316Mnizwj identityNot on fileWyandot Memorial HospitalTobacco smoking statusNo Smoking Status EnteredHocking Valley Community Hospitaltart: 41-97-2888Lwhzcyr of Social functionMetroHealthStart: 27-44-4598Jvi Male (finding)[place] History of Present illness Narrative 01-15-2023 Note Date & PzhpFxseZanuqhdq25-71-8243 History of Present illness Narrative* Ro Chinchilla RDH - 01/15/2023 1:12 PM EDT * Ro Chinchilla RDH - 01/15/2023 12:00 AM EDT ----- Sunday, January 15, 2023 at 2:05:02 PM ----- ----- Provider: [id number] Alva -- Clinic: [facility] ----- OR EVALUATION Patient presents for evaluation [...] a time slot becomes available. Legal Guardian: [facility] [phone] Nursing Dept [phone] NOTE: Dr. Del Valle did the exam Ro Farnsworth RDH Next Visit: OR ----- Signed on Monday, January 16, 2023 at 8:42:19 AM ----- ----- Provider: [id number] Soumya Cosby DDS -- Clinic: [facility] [place] ----- documented in this encounterMetroHealth History of Present illness Narrative 08-29-2021 Note Date & JfqaEtpfOyukivet10-24-2476 History of Present illness Narrative* Lima Bazan RDH - 08/29/2021 11:22 AM EDT ----- Sunday, August 29, 2021 at 3:36:11 PM ----- ----- Provider: [id number] Soumya Bazan Hygienist -- Clinic: [facility] ----- [facility], Pt is ready for tx Pt presented [...] Advised to follow-up in [address] [facility] [place]: RECALL/ 1 year. ----- Signed on Sunday, August 29, 2021 at 3:45:45 PM ----- ----- Provider: Emre Maher DDS -- Clinic: [facility] ----- documented in this encounterMetroHealth Evaluation + Plan note Note Date & TypeNoteFacilityEvaluation + Plan note No data available for this section [facility] Hospital Discharge instructions Note Date & TypeNoteFacilityHospital Discharge instructions No data available for this section [facility] Progress note Note Date & TypeNoteFacilityProgress note No data available for this section [facility] Summary Purpose Family History No Family [...] and content) DATE CREATED AUTHOR 07/29/2022 [facility] DATE CREATED AUTHOR AUTHOR'S ORGANIZ ATION 01/23/2023 [facility] DATE CREATED AUTHOR AUTHOR'S ORGANIZ ATION 12/25/2023 [facility] Patient Care team informatio n (unrecognized section and content) Personnel Name: IRASEMA ANDREWS DO Address: Address: [address] [place] [address] Personnel Name: IRASEMA ANDREWS DO Address: Address: [address] [place] [address] Personnel Name: IRASEMA ANDREWS DO Address: Address: [address] [place] [address] FOR RECORDS PERTAINING TO PATIENTS WHO ARE [...] BE BASED ON THE PRIMARY CLINICAL RECORDS. [facility]. provides no warranty or guarantee of the accuracy or completeness of information in this document.
--- OUTSIDE RECORDS SUMMARY | 2025-03-03 07:06 | XMS_ITS | Clinical Summary ---
Author Organization [facility] Address [address] [facility] [place] [address] Care Team Providers Care National Park Tour Guide Name Role Phone Unavailable Primary Care Provider Unavailabl e Source Comments The following information is NOT included in Care Everywhere downloads:Psychiatric notes, ECG results, Cardiac Rehab notes, Pulmonary Function notes, data from SmartForms (includes but not limited toPregnancy data,audiograms, eye exams, pre-surgical evaluation notes, well-child exam data).[facility] Allergies Active AllergyReactionsCriticalityNoted FbrpMxduveacHlpppyj91/18/2018 Horses, cats, dogs, animal dander per prison information scanned under PingSome 2017 Gramineae Vmiawnw8701/07/2018 per prison information scanned under PingSome 2017 HuvktfjnViqzKtwk34/08/2021Pollen Ctavbjb7601/07/2018 per prison information scanned under PingSome 2017 Medications MedicationSigDispense QuantityRefillsLast FilledStart DateEnd DateStatus cloNIDine (CATAPRES) 0.2 MG tablet Take 0.2 mg by mouth 3 times daily.Active docusate sodium (COLACE) 100 MG capsule Take 100 mg by mouth 2 times daily.Active Multiple Vitamin (MULTI-VITAMINS) tablet Take by mouth.Active simvastatin (ZOCOR) 20 MG tablet Take 20 mg by mouth every evening.Active tretinoin (RETIN-A) 0.1 % cream Apply topically at bedtime. Apply daily at bedtimeActive Witch Delma (TUCKS) 50 % PADS Apply externally as needed.Active divalproex ER (DEPAKOTE ER) 500 MG ER tablet Take 1 Tablet by mouth 3 times daily.Active GuanFACINE HCl (TENEX) 4 MG er tablet Take 1 Tablet by mouth every morning.Active metoprolol (LOPRESSOR) 25 MG tablet Take 1 Tablet by mouth 3 times daily.Active minocycline (MINOCIN) 100 MG capsule Take 100 mg by mouth 2 times daily.Active OLANZapine (ZyPREXA) 10 MG tablet Take 10 mg by mouth at bedtime.Active OLANZapine (ZyPREXA) 20 MG tablet Take 20 mg by mouth at bedtime.Active ondansetron (ZOFRAN) 4 MG tablet Take 4 mg by mouth every 6 hours as needed.Active Persia-3 1000 MG CAPS Take by mouth 2 times daily.07/22/2020ctive QUEtiapine (SEROQUEL) 200 MG tablet Take 1 Tablet by mouth 2 times daily. 60 Tablet 07/22/2020ctive Acetaminophen 325 MG CAPS Take 2 Tablets by mouth every 4 hours as needed.07/22/2020ctive loratadine (CLARITIN) 10 MG tablet Take 1 Tablet by mouth daily as needed.07/22/2020ctive guaifenesin (Mucinex) 600 MG SR tablet Take 1 Tablet by mouth 2 times daily as needed. 60 Tablet 07/22/2020ctive Active Problems ProblemNoted DateDiagnosed DateIntellectual jzdtvugtyc22/18/2021 Overview (07/07/2020): Added automatically from request for surgery [id number] Gyalyg2101/07/2018 Overview (01/07/2018): Added automatically from request for surgery [id number] Immunizations ImmunizationAdministration DatesNext DueDTaP, unspecified formulation (AOP=068) 05/31/1999Influenza, injectable, quadrivalent, preservative (RFD=746)02/13/2017 Influenza, injectable, quadrivalent, preservative free (TZC=257)02/15/2021, 01/27/2020,01/29/2018,02/10/2015Influenza, injectable, trivalent, preservative (CKJ=339)02/19/2006Influenza, novel H0Y4-32, injectable, preservative-free (XEU=770)03/09/2009Influenza, whole virus (CVX=16)02/12/2008MMR, Nlvefyj-Bfulv-Qrueijz (CVX=03)10/30/2001Tdap (COV=749)09/23/2019 Social History Tobacco UseTypesPacks/DayYears UsedDateSmoking Tobacco: NeverSmokeless Tobacco: NeverSex and Gender InformationValueDate RecordedSex Assigned at BirthNot on fileLegal BkgBkum44/04/2012 12:48 PM ESTGender IdentityNot on fileSexual OrientationNot on file Last Filed Vital Signs Vital SignReadingTime TakenCommentsBlood Lydoejwm130/7304 1:15 PM EDT Soeix3442 1:15 PM GEUQnzohgrukcn10.8 ??C (98.3 ??F)07/28/2020 1:15 PM EDTRespiratory Ptxl3291 1:15 PM EDTOxygen Jhloxerbld720%07/28/2020 1:15 PM EDTInhaled Oxygen Concentration--Tggmhs80.6 kg (180 lb)07/28/2020 8:53 AM EDT Wlmqzl021.9 cm (6')07/28/2020 8:53 AM EDTBody Mass Index24.4104 8:53 AM EDT Plan of Treatment DateTypeDepartmentCare Team (Latest Contact Info)Beeruyjmilg71/29/2025 1:00 PM ESTOffice Visit [facility] [address] [place] [address] Cruz Blanchard, SMALL ANIMAL CARETAKER-PYTHON ENGINEER [address] [place] [address] Health MaintenanceDue DateLast DoneCommentsHIV Test10/15/2002Hepatitis C Qpfggzkb77/26/2006Hepatitis A (HAV) Vaccine (optional start 19+ years)10/15/2006 Hepatitis B (HBV) Vaccine (1 of 3 - 19+ 3-dose series)10/15/2006nnual Wellness Visit (G0438)09/20/2008HPV Vaccine (optional start 27-45 years)10/15/2014 Wasqnehvxhu45/26/2023COVID-19 Vaccine ( season)510/, 02/15/2021, 05/24/2020, Additional history existsInfluenza Vaccine (#1) 510/, 01/27/2020, 01/29/2018, Additional history existsTetanus (Td or Tdap) Aizrvlg32/03/Shingles (RZV) Vaccine (1 of 2) 10/15/2037Tdap VjqxtcsFagwrhjeg89/03/2020Pneumococcal Vaccine(s)Aged OutNo longer eligible based on patient's age to complete this topic Insurance * Guarantor: Alonzo Latham TypeRelation to PatientDate of BirthPhone Billing AddressPersonal/DtzsjfCrgk92/[birth year][address] [address] * Guarantor: Alonzo Latham TypeRelation to PatientDate of BirthPhone Billing AddressDental CdfmnkYuyp64/26/[address] [address]
--- OUTSIDE RECORDS SUMMARY | 2025-03-03 07:06 | XMS_ITS | Clinical Summary ---
Author Organization [facility] Healthcare Address [address] [place] [address] Care Team Providers Care Crane Operator Name Role Phone Unavailable Primary Care Provider Unavailabl e Social History Tobacco UseTypesPacks/DayYears UsedDateSmoking Tobacco: Never AssessedSex and Gender InformationValueDate RecordedSex Assigned at BirthNot on fileLegal Sex Male07/04/2022 11:23 PM EDTGender IdentityNot on fileSexual OrientationNot on file Last Filed Vital Signs Vital SignReadingTime TakenCommentsBlood Pressure--Pulse--Temperature-- Respiratory Rate--Oxygen Saturation--Inhaled Oxygen Concentration--Gkoxvi50.6 kg (180 lb)07/12/2022 12:00 PM CULHuwotd916.5 cm (6' 3 )07/12/2022 12:00 PM EDTBody Mass Index22.503 12:00 PM EDT Plan of Treatment Not on file Insurance
== END 2025-03-03 07:04 | disposition home or self-care (01) ==
LOC: LAB 07:03
PROVIDERS: PCP Family Medicine; Visit Provider Family Medicine
DX: F31.9 Bipolar disorder, unspecified (principal); Z79.899 Other long term (current) drug therapy
CPT/HCPCS: 36415; 80164